=== PATIENT | male | born 1965 | race Caucasian/White ===

== ENCOUNTER 2016-06-25 14:19 | Emergency (ER) ==
[2016-06-25 14:31] VITALS: BP 123/88; TEMP 98.4; BMI 29.5
[2016-06-25] MEDS ORDERED: ZOFRAN 4 MG/2 ML IVP STA (15:41)
[2016-06-25] MEDS ORDERED: SODIUM CHLORIDE 1,000 ML IV STA ×2 (15:41)
[2016-06-25 15:55] LABS: BASOPHILS % (AUTO) 0.3 % (0.0-3.0); EOSINOPHILS # (AUTO) 0.1 K/ul (0.0-0.7); EOSINOPHILS % (AUTO) 1.2 % (0.0-7.0); HEMATOCRIT 42.3 % (42.0-52.0); HEMOGLOBIN 15.4 g/dl (14.0-18.0); IMMATURE GRANULOCYTE % (AUTO) 0.2 % (0.0-5.0); LYMPHOCYTES % (AUTO) 41.4 (10.0-50.0); MEAN CORPUSCULAR HEMOGLOBIN 32.8 pg (27.0-31.0); MEAN CORPUSCULAR HGB CONC 36.4 (31.8-35.4); MONOCYTES # (AUTO) 0.6 K/uL (0.4-2.0); NEUTROPHILS # (AUTO) 6.3 K/ul (2.0-6.9); NEUTROPHILS % (AUTO) 51.9; PLATELET COUNT 194 10^3/uL (140-440); WHITE BLOOD COUNT 12.14 K/ul (4.2-10.2)
[2016-06-25 16:11] LABS: FLU INTERNAL QC INTERNAL QC VALID; RAPID FLU A NEGATIVE (NEGATIVE); RAPID FLU B NEGATIVE (NEGATIVE)
[2016-06-25 16:22] LABS: ALANINE AMINOTRANSFERASE 18 U/L (12-78); ALBUMIN 3.9 g/dL (3.4-5.0); ALKALINE PHOSPHATASE 94 U/L (50-136); AMYLASE 48 U/L (25-115); ANION GAP 13.8; ASPARTATE AMINO TRANSFERASE 17 U/L (15-37); BILIRUBIN,TOTAL 0.65 mg/dL (0.00-1.20); BLOOD UREA NITROGEN 9 mg/dL (7-18); BUN/CREATININE RATIO 9.57; CALCIUM 9.1 mg/dL (8.2-10.2); CARBON DIOXIDE 23 mmol/L (21-32); CHLORIDE 110 mmol/L (98-107); CREATINE KINASE 39 U/L; CREATININE 0.94 mg/dL (0.60-1.10); GLUCOSE 79 mg/dL (70-100); LIPASE 22 U/L (8-78); POTASSIUM 3.8 mmol/L (3.5-5.1); SODIUM 143 mmol/L (136-145); TOTAL PROTEIN 6.9 g/dL (6.4-8.2)
--- NOTE | 2016-06-25 16:32 | CT ---
EXAM: CT of the abdomen and pelvis without IV contrast. HISTORY: Vomiting, diarrhea COMPARISON: 03/05/2015 TECHNIQUE: CT of the abdomen and pelvis without IV contrast. Oral contrast is seen. FINDINGS: Noncontrast technique limits evaluation of the abdominal viscera. No renal, ureteral or bladder brenna culi are identified. The unenhanced liver, gallbladder, spleen, adrenals, kidneys and pancreas are u nremarkable. No abnormal small bowel dilation is seen. There is mild diverticulosis without evidence of divertic ulitis. The appendix appears to be surgically absent. Ventral abdominal wall mesh is seen. There is a small fat containing umbilical hernia. There is calcified atherosclerotic plaque of the aorta and its branches. Small bilateral fat containing inguinal hernias are present. No free air or free fluid is seen. A sacral stimulator device is seen. There is moderate to severe L5-S1 degenerative disc disease. Mild to moderate degenerative disc disease is seen at other levels. There is minima l grade 1 posterior listhesis at L1-L2. There is mildly increased sclerosis of the right aspect of t he L4 vertebral body near the superior endplate. There is a suggestion of a possible small Schmorl' s node in this region. IMPRESSION: No acute intra-abdominal findings. Mild increased focal sclerosis of the right aspect of the L4 vertebral body with a suggestion of a p ossible Schmorl's node in this region. This could be degenerative in etiology, however a metastasis would be difficult to exclude. Mild diverticulosis without evidence of diverticulitis. Small bilateral fat containing inguinal hernias and small fat-containing umbilical hernia. Other chronic and incidental findings as detailed above.
--- NOTE | 2016-06-25 16:38 | CT ---
EXAM: Noncontrast CT of the chest HISTORY: Cough COMPARISON: 02/23/2015, 12/01/2011 TECHNIQUE: Noncontrast CT of the chest FINDINGS: A subcentimeter stable right upper lobe pulmonary nodule is seen on axial image 27. There is a stab le perifissural lymph node adjacent to the right minor fissure. There is a stable subcentimeter pul monary nodule in the left upper lobe on axial image 22. Several calcified granulomas are seen. The re is minimal left lingular atelectasis. No focal consolidation, pleural effusion or pneumothorax i s seen. Heart size is normal. Minimal calcified atherosclerotic plaque of the aorta is seen. No mediastina l lymphadenopathy is seen. Calcified mediastinal and hilar lymph nodes are present. There are mild degenerative changes of the thoracic spine. IMPRESSION: No acute cardiopulmonary findings. Evidence of prior granulomatous infection. Minimal left lingular atelectasis.
--- NOTE | 2016-06-25 17:16 | ED.PDOC ---
General ED Provider: Dr. ABBY CASEY-ER Chief Complaint: Nausea/Vomiting Stated Complaint: im throwing up and having diarrhea Time Seen by Physician: 14:30 Mode of Arrival: Walk-In Information Source: Patient Exam Limitations: No limitations Primary Care Provider: JAMES MARSH Nursing and Triage Documentation Reviewed and Agree: Yes GI Complaint Exam - Vomiting/Diarrhea Complaint/Exam Onset/Duration: 36hrs Symptoms Are: Still present Episodes of Vomiting over last 24 Hours: 5 Episodes of Diarrhea Over Last 24 Hours: 4 Initial Severity: Mild Current Severity: Moderate Character of Vomiting: Reports: Non-bilious Character of Diarrhea: Reports: Watery Aggravating: Reports: None Alleviating: Reports: None Associated Signs and Symptoms: Denies: Dizziness, Light-headedness, Melena, Hematemesis, Fever, Abdominal pain, Cramping Non-GI Risk Factors: Reports: None Surgical Obstruction Risk Factors: Reports: None Abdominal Findings: Present: None [place] Respirations Present: No Differential Diagnoses: Dehydration, Viral Gastroenteritis Review of Systems - Review Of Systems Constitutional: Reports: No symptoms Eyes: Reports: No symptoms Ears, Nose, Mouth, Throat: Reports: No symptoms Respiratory: Reports: No symptoms Cardiac: Reports: No symptoms GI: Reports: Diarrhea, Nausea, Vomiting : Reports: No symptoms Musculoskeletal: Reports: No symptoms Skin: Reports: No symptoms Neurological: Reports: No symptoms Endocrine: Reports: No symptoms Hematologic/Lymphatic: Reports: No symptoms All Other Systems: Reviewed and Negative Past Medical History - Past Medical History Previously Healthy: No Endocrine: Reports: Dyslipidemia Cardiovascular: Reports: None Respiratory: Reports: None Hematological: Reports: None Gastrointestinal: Reports: None Genitourinary: Reports: Other (prostate cancer) Neuro/Psych: Reports: None Musculoskeletal: Reports: None Cancer: Reports: None - Surgical History General Surgical History: Reports: None - Family History Family History: Reports: None - Social History Smoking Status: Current every day smoker, Heavy tobacco smoker Hx Substance Use: No Alcohol Screening: None Lives: With family Physical Exam - Physical Exam Appearance: Well-appearing, No pain distress, Well-nourished Eyes: KURT, EOMI, Conjunctiva clear ENT: Ears normal, Nose normal, Oropharynx normal Neck: Supple Respiratory: Airway patent, Breath sounds clear, Breath sounds equal, Respirations nonlabored Cardiovascular: RRR, Pulses normal, No rub, No murmur GI/: Soft, Nontender, No masses, Bowel sounds normal, No Organomegaly Musculoskeletal: Normal strength, ROM intact, No edema, No calf tenderness Skin: Warm, Dry, Normal color Neurological: Sensation intact, Motor intact, Reflexes intact, Cranial nerves intact, Alert, Oriented Psychiatric: Affect appropriate, Mood appropriate Interpretation - Radiology Interpretation Radiology Interpretation By: Radiologist Radiology Results: Negative Exam Interpreted: CT Scan Re-Evaluation - Re-Evaluation Time of Re-Evaluation: 17:16 Status: Improved Vital Signs Stable: Yes Pain Level: 0 Appearance: NAD Lungs: Clear Skin: Warm and Dry Neuro: Alert and Oriented X3 CV: RRR Critical Care Note - Critical Care Note Total Time (mins): 0 Course - Course Hematology/Chemistry: 06/25/16 15:45 06/25/16 15:45 Orders, Labs, Meds: Lab Review 06/25/16 06/25/16 06/25/16 15:45 15:55 17:25 WBC 12.14 H RBC 4.70 Hgb 15.4 Hct 42.3 MCV 90.0 MCH 32.8 H MCHC 36.4 H RDW Coeff of Emil 12.2 Plt Count 194 Immature Gran % (Auto) 0.2 Neut % (Auto) 51.9 Lymph % (Auto) 41.4 [place] % (Auto) 5.0 Eos % (Auto) 1.2 Baso % (Auto) 0.3 Immature Gran # (Auto) 0.0 Neut # 6.3 Lymph # 5.0 H [place] # 0.6 Eos # 0.1 Baso # 0.0 D-Dimer 0.27 Sodium 143 Potassium 3.8 Chloride 110 H Carbon Dioxide 23 Anion Gap 13.8 BUN 9 Creatinine 0.94 Estimated GFR (MDRD) 84.00 BUN/Creatinine Ratio 9.57 Glucose 79 Calcium 9.1 Total Bilirubin 0.65 AST 17 ALT 18 Alkaline Phosphatase 94 Total Creatine Kinase 39 Troponin I < 0.0100 B-Natriuretic Peptide 10 Total Protein 6.9 Albumin 3.9 Globulin 3.0 Albumin/Globulin Ratio 1.30 Amylase 48 Lipase 22 Urine Color Yellow Urine Clarity Clear Urine pH 5.5 Ur Specific [place] <=1.005 Urine Protein Negative Urine Glucose (UA) Negative Urine Ketones Negative Urine Blood Negative Urine Nitrite Negative Urine Bilirubin Negative Urine Urobilinogen 0.2 Ur Leukocyte Esterase Negative Influenza A (Rapid) Negative Influenza B (Rapid) Negative Orders Category Date Time Status EKG-(ED ONLY) Stat CARDIO 06/25/16 15:40 Completed ED IV/MEDIPORT/POWERPORT .ONCE EMERGENCY 06/25/16 15:41 Active AMYLASE Stat LAB 06/25/16 15:45 Completed BNP [B-TYPE NATRIURETIC PEPTIDE] Stat LAB 06/25/16 15:45 Completed CBC W/ AUTO DIFF Stat LAB 06/25/16 15:45 Completed COMPREHENSIVE METABOLIC PANEL Stat LAB 06/25/16 15:45 Completed CREATINE KINASE Stat LAB 06/25/16 15:45 Completed D-DIMER Stat LAB 06/25/16 15:45 Completed LIPASE Stat LAB 06/25/16 15:45 Completed MOLECULAR GROUP A STREP Stat LAB 06/25/16 15:55 Results RAPID FLU A/B Stat LAB 06/25/16 15:55 Completed STREP SCREEN Stat LAB 06/25/16 15:55 Results TROPONIN I Stat LAB 06/25/16 15:45 Completed URINALYSIS C & S IF INDICATED Stat LAB 06/25/16 17:25 Completed 0.9 % Sodium Chloride [Saline Flush] MEDS 06/25/16 15:41 Ordered 1 syr IVF PRN PRN Ondansetron HCl/Pf [Zofran 4 mg/2 ml] MEDS 06/25/16 15:41 Discontinued 4 mg IVP ONCE STA Sodium Chloride 0.9% [Sodium Chloride] 1,000 ml MEDS 06/25/16 15:41 Discontinued IV BOLUS Sodium Chloride 0.9% [Sodium Chloride] 1,000 ml MEDS 06/25/16 15:[address] ABDOMEN/PELVIS WO CONTRAST Stat RADS 06/25/16 15:[address] CHEST W/O CONTRAST Stat RADS 06/25/16 15:54 Completed Medications Generic Name Dose Route Start Last Admin Trade Name Freq PRN Reason Stop Dose Admin Sodium Chloride 1 syr 06/25/16 15:41 06/25/16 16:25 Saline Flush IVF 1 syr PRN PRN Administration To flush IV Discontinued Medications Generic Name Dose Route Start Last Admin Trade Name Freq PRN Reason Stop Dose Admin Sodium Chloride 1,000 mls @ 1,000 mls/hr 06/25/16 15:41 06/25/16 16:25 Sodium Chloride IV 06/25/16 16:40 1,000 mls/hr BOLUS STA Administration Sodium Chloride 1,000 mls @ 1,000 mls/hr 06/25/16 15:41 06/25/16 17:28 Sodium Chloride IV 06/25/16 16:40 1,000 mls/hr BOLUS STA Administration Ondansetron HCl 4 mg 06/25/16 15:41 06/25/16 16:25 Zofran 4 Mg/2 Ml IVP 06/25/16 15:42 4 mg ONCE STA Administration Vital Signs: Temp Pulse Resp BP Pulse Ox 06/25/16 14:19 98.4 F 85 20 123/88 96 Departure - Departure Time of Disposition: 17:46 Disposition: HOME SELF-CARE Discharge Problem: Gastroenteritis Instructions: Gastroenteritis (ED) Condition: Good Pt referred to PMD for follow-up: Yes Additional Instructions: zofran 4mg q 4hrs prn #4--clear liquids--reheck in 24hrs if not better Allergies/Adverse Reactions: Allergies No Known Allergies Allergy (Uncoded 06/25/16 14:24) Home Medications: Ambulatory Orders Aripiprazole [Abilify] 5 mg PO DAILY 03/25/15 Fenofibrate 160 mg PO DAILY 03/25/15 Gabapentin [Neurontin] 300 mg PO DAILY 03/25/15 Alprazolam [Xanax] 0.5 mg PO BID #20 tablet 06/08/15 Sertraline HCl 50 mg PO DAILY 06/08/15 Buspirone HCl 15 mg PO TID PRN 01/24/16 Clonazepam [Klonopin] 1 mg PO BID 01/24/16 Lamotrigine 100 mg PO BID 01/24/16 Quetiapine Fumarate [Seroquel] 100 mg PO BEDTIME 01/24/16 Disposition Discussed With: Patient
[2016-06-25 17:43] LABS: BILIRUBIN,URINE Negative (NEGATIVE); KETONES,URINE Negative (NEGATIVE); LEUKOCYTE ESTERASE ,URINE Negative (NEGATIVE); NITRITE,URINE Negative (NEGATIVE); PH,URINE 5.5 (5-9); PROTEIN,URINE Negative (NEGATIVE); URINE, BLOOD Negative (NEGATIVE)
[2016-06-25 17:44] LABS: ADD URINE MICROSCOPIC NO
== END 2016-06-25 18:37 | disposition home or self-care (01) ==
LOC: ED 14:19
DX: K52.9 Noninfective gastroenteritis and colitis, unspecified (principal); F17.210 Nicotine dependence, cigarettes, uncomplicated; Z79.899 Other long term (current) drug therapy
CPT/HCPCS: 36415; 80053; 81001; 82150; 82550; 83690; 83880; 84484; 85025; 85379; 87651; 87804; 87880; 93005; 93010; 96361; 96374; 99283

== ENCOUNTER 2016-09-12 09:02 | Outpatient (CLI) ==
[2012-11-05 12:28] VITALS: TEMP 97.5
[2016-09-12 09:16] LABS: BASOPHILS % (AUTO) 0.4 % (0.0-3.0); EOSINOPHILS # (AUTO) 0.1 K/ul (0.0-0.7); EOSINOPHILS % (AUTO) 1.3 % (0.0-7.0); HEMATOCRIT 45.8 % (42.0-52.0); HEMOGLOBIN 16.6 g/dl (14.0-18.0); IMMATURE GRANULOCYTE % (AUTO) 0.2 % (0.0-5.0); LYMPHOCYTES # (AUTO) 3.3 K/uL (0.60-3.4); LYMPHOCYTES % (AUTO) 35.2 (10.0-50.0); MEAN CORPUSCULAR HEMOGLOBIN 33.7 pg (27.0-31.0); MEAN CORPUSCULAR HGB CONC 36.2 (31.8-35.4); MEAN CORPUSCULAR VOLUME 92.9 fl (80.0-94.0); MONOCYTES # (AUTO) 0.5 K/uL (0.4-2.0); NEUTROPHILS # (AUTO) 5.4 K/ul (2.0-6.9); NEUTROPHILS % (AUTO) 57.9; PLATELET COUNT 192 10^3/uL (140-440); RED BLOOD COUNT 4.93 10^6/ul (4.70-6.10); WHITE BLOOD COUNT 9.33 K/ul (4.2-10.2)
[2016-09-12 10:01] LABS: ALBUMIN 3.9 g/dL (3.4-5.0); ALBUMIN/GLOBULIN RATIO 1.22; BILIRUBIN,TOTAL 0.58 mg/dL (0.00-1.20); BUN/CREATININE RATIO 13.79; CALCIUM 9.3 mg/dL (8.2-10.2); CHOL/HDL RATIO 4.7 (4.5-6.4); CREATININE 0.87 mg/dL (0.60-1.10); TOTAL PROTEIN 7.1 g/dL (6.4-8.2)
== END 2016-09-12 09:03 | disposition home or self-care (01) ==
LOC: LAB 09:02
PROVIDERS: ATTEND Nurse Practitioner Family
DX: E78.5 Hyperlipidemia, unspecified (principal); Z12.5 Encounter for screening for malignant neoplasm of prostate
CPT/HCPCS: 36415; 80053; 80061; 84443; 85025

== ENCOUNTER 2017-01-22 16:26 | Outpatient (CLI) ==
[2012-11-05 12:28] VITALS: TEMP 97.5
[2017-01-22 16:30] LABS: BASOPHILS % (AUTO) 0.3 % (0.0-3.0); EOSINOPHILS # (AUTO) 0.1 K/ul (0.0-0.7); HEMATOCRIT 39.8 % (42.0-52.0); IMMATURE GRANULOCYTE % (AUTO) 0.2 % (0.0-5.0); LYMPHOCYTES # (AUTO) 4.2 K/uL (0.60-3.4); LYMPHOCYTES % (AUTO) 45.7 (10.0-50.0); MEAN CORPUSCULAR HEMOGLOBIN 33.1 pg (27.0-31.0); MEAN CORPUSCULAR HGB CONC 35.2 (31.8-35.4); MEAN CORPUSCULAR VOLUME 94.1 fl (80.0-94.0); MONOCYTES # (AUTO) 0.6 K/uL (0.4-2.0); NEUTROPHILS # (AUTO) 4.2 K/ul (2.0-6.9); NEUTROPHILS % (AUTO) 45.8; PLATELET COUNT 208 10^3/uL (140-440); RED BLOOD COUNT 4.23 10^6/ul (4.70-6.10); WHITE BLOOD COUNT 9.17 K/ul (4.2-10.2)
== END 2017-01-22 16:27 | disposition home or self-care (01) ==
LOC: LAB 16:26
PROVIDERS: ATTEND Emergency Medicine
DX: E78.5 Hyperlipidemia, unspecified (principal); R63.4 Abnormal weight loss; R73.09 Other abnormal glucose
CPT/HCPCS: 36415; 84436; 84443; 84480; 85025

== ENCOUNTER 2017-01-26 15:41 | Emergency (ER) ==
[2017-01-26 15:46] VITALS: BP 139/82; TEMP 97.9; BMI 26.3
[2017-01-26 16:31] LABS: BASOPHILS % (AUTO) 0.3 % (0.0-3.0); EOSINOPHILS # (AUTO) 0.2 K/ul (0.0-0.7); EOSINOPHILS % (AUTO) 1.8 % (0.0-7.0); HEMOGLOBIN 14.2 g/dl (14.0-18.0); IMMATURE GRANULOCYTE % (AUTO) 0.2 % (0.0-5.0); LYMPHOCYTES # (AUTO) 4.5 K/uL (0.60-3.4); LYMPHOCYTES % (AUTO) 42.7 (10.0-50.0); MEAN CORPUSCULAR HEMOGLOBIN 33.4 pg (27.0-31.0); MEAN CORPUSCULAR HGB CONC 35.5 (31.8-35.4); MEAN CORPUSCULAR VOLUME 94.1 fl (80.0-94.0); MONOCYTES # (AUTO) 0.8 K/uL (0.4-2.0); MONOCYTES % (AUTO) 7.2 (0-10); NEUTROPHILS % (AUTO) 47.8; PLATELET COUNT 213 10^3/uL (140-440); RED BLOOD COUNT 4.25 10^6/ul (4.70-6.10); WHITE BLOOD COUNT 10.47 K/ul (4.2-10.2)
[2017-01-26 16:49] LABS: PARTIAL THROMBOPLASTIN TIME 21.9 SEC (23.9-40.0); PROTHROMBIN TIME 10.8 SEC (9.3-11.0)
[2017-01-26 16:57] LABS: ALBUMIN/GLOBULIN RATIO 1.54; ANION GAP 17.9; BILIRUBIN,TOTAL 0.37 mg/dL (0.00-1.20); BUN/CREATININE RATIO 10.34; CALCIUM 9.2 mg/dL (8.2-10.2); CREATININE 0.87 mg/dL (0.60-1.10); POTASSIUM 3.9 mmol/L (3.5-5.1); TOTAL PROTEIN 6.6 g/dL (6.4-8.2)
[2017-01-26 17:03] LABS: OCCULT BLOOD INTERNAL QC 1 INTERNAL QC VALID; OCCULT BLOOD INTERNAL QC 2 INTERNAL QC VALID; OCCULT BLOOD INTERNAL QC 3 INTERNAL QC VALID; OCCULT BLOOD SAMPLE 1 NEGATIVE (NEGATIVE); OCCULT BLOOD SAMPLE 2 NO SPECIMEN RECEIVED (NEGATIVE); OCCULT BLOOD SAMPLE 3 NO SPECIMEN RECEIVED (NEGATIVE)
--- NOTE | 2017-01-26 17:31 | CT ---
Exam: CT scan of the abdomen pelvis without contrast. Date: 01/26/2017. Comparison: 06/25/2016. HISTORY: Pain. TECHNIQUE: A helical scan of the abdomen pelvis was performed without contrast. FINDINGS: There is chronic scarring in the lingula with granulomatous calcifications present. Dege nerative changes are seen in the lower thoracic spine and in the lumbar spine. A battery pack is im planted in the soft tissues over the right gluteus muscle and a wire extends through the sacral fora men into the lower right pelvis as before. There is a small fat filled umbilical hernia. The spleen and liver have a uniform attenuation. A ch olecystectomy is noted. The stomach, pancreas and adrenal glands are normal. The kidneys have a no rmal morphology. No calculi or hydronephrosis is seen. No retroperitoneal adenopathy is present. Aorta has peripheral calcification and does not exceed 3 cm. The small bowel is normal and an appen dectomy is noted. There are diverticula in the colon but no inflammatory changes. Pelvic sidewall and bladder are normal. There is no free pelvic fluid. Prostate, rectum and inguinal regions are n ormal. Impression: No acute findings in the abdomen or pelvis. Diverticulosis without diverticulitis. Cholecystectomy and appendectomy. Small fat filled umbilical hernia. ASVD.
--- NOTE | 2017-01-26 17:47 | ED.PDOC ---
General ED Provider: Dr. SOLA KESSLER Chief Complaint: GI Bleed Stated Complaint: retal bleed Time Seen by Physician: 16:00 (seen with steven) Mode of Arrival: Walk-In Information Source: Patient Exam Limitations: No limitations Primary Care Provider: [facility] Nursing and Triage Documentation Reviewed and Agree: Yes GI Complaint Exam - Rectal Complaint/Exam Patient Complains of: Reports: Rectal bleeding Onset/Duration: 2 months off and on Symptoms Are: Resolved Timing: Intermittent Episodes Lasting: Weeks Initial Severity: Mild Current Severity: None Location: Reports: No pain Aggravating: Reports: None Alleviating: Reports: None Associated Signs and Symptoms: Reports: Rectal bleeding, Bright red blood w/ stool Related History: Reports: Similar episode Related Surgical History: Reports: None Rectal Exam: Present: Normal findings Differential Diagnoses: Hemorrhoids Review of Systems - Review Of Systems Constitutional: Reports: No symptoms Eyes: Reports: No symptoms Ears, Nose, Mouth, Throat: Reports: No symptoms Respiratory: Reports: No symptoms Cardiac: Reports: No symptoms GI: Reports: Other (rectal bleeding) : Reports: No symptoms Musculoskeletal: Reports: No symptoms Skin: Reports: No symptoms Neurological: Reports: No symptoms Endocrine: Reports: No symptoms Hematologic/Lymphatic: Reports: No symptoms All Other Systems: Reviewed and Negative Past Medical History - Past Medical History Previously Healthy: No Endocrine: Reports: Dyslipidemia Cardiovascular: Reports: None Respiratory: Reports: None Hematological: Reports: None Gastrointestinal: Reports: None Genitourinary: Reports: Other (prostate cancer) Neuro/Psych: Reports: None Musculoskeletal: Reports: None Cancer: Reports: None - Surgical History General Surgical History: Reports: None - Family History Family History: Reports: None - Social History Smoking Status: Current every day smoker, Heavy tobacco smoker Hx Substance Use: No Alcohol Screening: None Physical Exam - Physical Exam Appearance: Well-appearing, No pain distress, Well-nourished Eyes: KURT, EOMI, Conjunctiva clear ENT: Ears normal, Nose normal, Oropharynx normal Respiratory: Airway patent, Breath sounds clear, Breath sounds equal, Respirations nonlabored Cardiovascular: RRR, Pulses normal, No rub, No murmur GI/: Soft, Nontender, No masses, Bowel sounds normal, No Organomegaly Musculoskeletal: Normal strength, ROM intact, No edema, No calf tenderness Skin: Warm, Dry, Normal color Neurological: Sensation intact, Motor intact, Reflexes intact, Cranial nerves intact, Alert, Oriented Psychiatric: Affect appropriate, Mood appropriate Interpretation - Radiology Interpretation Radiology Interpretation By: Radiologist Radiology Results: No acute changes Critical Care Note - Critical Care Note Total Time (mins): 0 Course - Course Hematology/Chemistry: 01/26/17 16:29 01/26/17 16:29 Orders, Labs, Meds: Lab Review 01/26/17 01/26/17 16:29 16:55 WBC 10.47 H RBC 4.25 L Hgb 14.2 Hct 40.0 L MCV 94.1 H MCH 33.4 H MCHC 35.5 H RDW Coeff of Emil 12.5 Plt Count 213 Immature Gran % (Auto) 0.2 Neut % (Auto) 47.8 Lymph % (Auto) 42.7 [place] % (Auto) 7.2 Eos % (Auto) 1.8 Baso % (Auto) 0.3 Immature Gran # (Auto) 0.0 Neut # 5.0 Lymph # 4.5 H [place] # 0.8 Eos # 0.2 Baso # 0.0 PT 10.8 INR 1.06 APTT 21.9 L Sodium 147 H Potassium 3.9 Chloride 109 H Carbon Dioxide 24 Anion Gap 17.9 BUN 9 Creatinine 0.87 Estimated GFR (MDRD) 92.00 BUN/Creatinine Ratio 10.34 Glucose 89 Calcium 9.2 Total Bilirubin 0.37 AST 15 ALT 14 Alkaline Phosphatase 81 Total Protein 6.6 Albumin 4.0 Globulin 2.6 Albumin/Globulin Ratio 1.54 Amylase 49 Lipase 26 Stl Occult Blood (IFOB) Negative Stool Occult Blood #2 No specimen received Stool Occult Blood #3 No specimen received Orders Category Date Time Status AMYLASE Stat LAB 01/26/17 16:29 Completed CBC W/ AUTO DIFF Stat LAB 01/26/17 16:29 Completed COMPREHENSIVE METABOLIC PANEL Stat LAB 01/26/17 16:29 Completed LIPASE Stat LAB 01/26/17 16:29 Completed OCCULT BLOOD, STOOL Stat LAB 01/26/17 16:55 Completed PARTIAL THROMBOPLASTIN TIME Stat LAB 01/26/17 16:29 Completed PT WITH INR Stat LAB 01/26/17 16:[address] ABDOMEN/PELVIS WO CONTRAST Stat RADS 01/26/17 16:25 Completed Vital Signs: Temp Pulse Resp BP Pulse Ox 01/26/17 15:41 97.9 F 63 18 139/82 98 Departure - Departure Time of Disposition: 17:47 Disposition: HOME SELF-CARE Discharge Problem: Gastrointestinal hemorrhage Instructions: Rectal Bleeding (ED) Condition: Good Pt referred to PMD for follow-up: Yes Additional Instructions: Please call your Family Physician as soon as possible to schedule a follow-up appointment. Allergies/Adverse Reactions: Allergies No Known Allergies Allergy (Verified 01/26/17 15:46) Home Medications: Ambulatory Orders Aripiprazole [Abilify] 5 mg PO DAILY 03/25/15 Fenofibrate 160 mg PO DAILY 03/25/15 Gabapentin [Neurontin] 300 mg PO DAILY 03/25/15 Alprazolam [Xanax] 0.5 mg PO BID #20 tablet 06/08/15 Sertraline HCl 50 mg PO DAILY 06/08/15 Olanzapine 5 mg PO BID 12/04/16 Olanzapine 20 mg PO BEDTIME 12/04/16 Disposition Discussed With: Patient
== END 2017-01-26 17:50 | disposition home or self-care (01) ==
LOC: ED 15:41
DX: K62.5 Hemorrhage of anus and rectum (principal); E78.5 Hyperlipidemia, unspecified; Z85.46 Personal history of malignant neoplasm of prostate; F17.210 Nicotine dependence, cigarettes, uncomplicated; Z79.899 Other long term (current) drug therapy
CPT/HCPCS: 36415; 80053; 82150; 82272; 83690; 85025; 85610; 85730; 99284

== ENCOUNTER 2017-02-11 05:47 | Inpatient (IN) ==
[2017-02-11 06:04] LABS: BASOPHILS % (AUTO) 0.5 % (0.0-3.0); EOSINOPHILS # (AUTO) 0.2 K/ul (0.0-0.7); EOSINOPHILS % (AUTO) 1.7 % (0.0-7.0); HEMATOCRIT 43.2 % (42.0-52.0); HEMOGLOBIN 15.3 g/dl (14.0-18.0); IMMATURE GRANULOCYTE % (AUTO) 0.1 % (0.0-5.0); LYMPHOCYTES # (AUTO) 3.9 K/uL (0.60-3.4); LYMPHOCYTES % (AUTO) 44.4 (10.0-50.0); MEAN CORPUSCULAR HGB CONC 35.4 (31.8-35.4); MONOCYTES # (AUTO) 0.6 K/uL (0.4-2.0); NEUTROPHILS # (AUTO) 4.1 K/ul (2.0-6.9); NEUTROPHILS % (AUTO) 46.3; PLATELET COUNT 197 10^3/uL (140-440)
[2017-02-11 06:24] LABS: ALBUMIN 3.9 g/dL (3.4-5.0); ALBUMIN/GLOBULIN RATIO 1.18; ANION GAP 13.7; BILIRUBIN,TOTAL 0.39 mg/dL (0.00-1.20); BUN/CREATININE RATIO 10.98; CALCIUM 9.9 mg/dL (8.2-10.2); CREATININE 0.91 mg/dL (0.60-1.10); POTASSIUM 3.7 mmol/L (3.5-5.1); TOTAL PROTEIN 7.2 g/dL (6.4-8.2)
[2017-02-11] MEDS ORDERED: MORPHINE 4 MG/ML VIAL IVP STA (06:28)
[2017-02-11] MEDS ORDERED: ZOFRAN 4 MG/2 ML IVP STA (06:28)
[2017-02-11] MEDS ORDERED: SODIUM CHLORIDE 1,000 ML IV STA (06:29)
[2017-02-11] MEDS ORDERED: DILAUDID 1 MG/ML SYRINGE IVP STA (06:31)
--- NOTE | 2017-02-11 06:39 | ED.PDOC ---
General Stated Complaint: Patient is a 51 year old male who has a history of lower gi blood with recent negative work up at [place] 45 days ago. Has had negative Colonosocpies. State he went to be feeling well woke up with severe abdominal pain and started having gypsy blood in stool x 2. Time Seen by Physician: 06:37 Mode of Arrival: Walk-In Information Source: Patient Exam Limitations: No limitations Nursing and Triage Documentation Reviewed and Agree: Yes <BRENT SHAFER - Last Filed: 02/11/17 06:56> <SOLA KESSLER - Last Filed: 02/11/17 07:44> ED Provider: Dr. SOLA KESSLER Chief Complaint: Non-specific Complaint [facility] Exam - Rectal Complaint/Exam Patient Complains of: Reports: Rectal bleeding Onset/Duration: 4 hours Symptoms Are: Still present Timing: Intermittent Initial Severity: Moderate Current Severity: Moderate Location: Reports: Rectal Character: Reports: Burning Aggravating: Reports: Bowel movement Alleviating: Reports: None Associated Signs and Symptoms: Reports: Rectal bleeding, Bright red blood w/ stool Related History: Denies: Hemorrhoids, Crohn's, Pilonidal Abcess, Hx of anal intercourse Related Surgical History: Reports: Appendectomy Rectal Exam: Present: Normal findings. Absent: External hemorrhoids Differential Diagnoses: Hemorrhoids, Pruritis Ani, Rectal Fissure, Other ( Diverticulitis ) <BRENT SHAFER Last Filed: 02/11/17 06:56> Review of Systems - Review Of Systems Constitutional: Reports: Loss of appetite, Other (weight loss ) Respiratory: Reports: No symptoms Cardiac: Reports: No symptoms GI: Reports: Abdominal pain, Blood streaked bowels, Poor appetite, Rectal bleeding. Denies: Constipated, Diarrhea, Difficulty swallowing : Reports: No symptoms Musculoskeletal: Reports: No symptoms Neurological: Reports: Anxiety Endocrine: Reports: No symptoms Hematologic/Lymphatic: Reports: No symptoms All Other Systems: Reviewed and Negative <BRENT SHAFER Last Filed: 02/11/17 06:56> Past Medical History - Past Medical History Previously Healthy: No Endocrine: Reports: Dyslipidemia Cardiovascular: Reports: None Respiratory: Reports: None Hematological: Reports: None Gastrointestinal: Reports: GI Bleed Genitourinary: Reports: Other (prostate cancer) Neuro/Psych: Reports: Anxiety, Depression Musculoskeletal: Reports: None Cancer: Reports: Other (prostate ) - Surgical History General Surgical History: Reports: Appendectomy, Other (TURP) - Family History Family History: Reports: None - Social History Smoking Status: Current every day smoker, Heavy tobacco smoker Hx Substance Use: No Alcohol Screening: None - Immunizations Tetanus Shot up to Date: Yes <BRENT SHAFER - Last Filed: 02/11/17 06:56> Physical Exam - Physical Exam Appearance: Ill-appearing, Thin Eyes: KURT Neck: Supple Respiratory: Airway patent, Breath sounds clear, Breath sounds equal, Respirations nonlabored Cardiovascular: RRR, Pulses normal, No rub, No murmur GI/: Soft, Bowel sounds normal, Tender Musculoskeletal: Normal strength, ROM intact, No edema, No calf tenderness Skin: Warm Neurological: Sensation intact, Motor intact, Reflexes intact, Cranial nerves intact, Alert, Oriented Psychiatric: Anxious <BRENT SHAFER - Last Filed: 02/11/17 06:56> Physician Notification - Case Discussed Endorsed To/Discussed With: Dr Bhatia Time of Discussion: 07:00 <BRENT SHAFER - Last Filed: 02/11/17 06:56> Critical Care Note - Critical Care Note Total Time (mins): 0 <BRENT SHAFER - Last Filed: 02/11/17 06:56> Course - Course Hematology/Chemistry: 02/11/17 06:03 02/11/17 06:03 <BRENT SHAFER - Last Filed: 02/11/17 06:56> - Course Hematology/Chemistry: 02/11/17 06:03 02/11/17 06:03 <SOLA KESSLER - Last Filed: 02/11/17 07:44> - Course Orders, Labs, Meds: Lab Review 02/11/17 02/11/17 02/11/17 06:03 06:03 06:05 WBC 8.80 RBC 4.50 L Hgb 15.3 Hct 43.2 MCV 96.0 H MCH 34.0 H MCHC 35.4 RDW Coeff of Emil 12.6 Plt Count 197 Immature Gran % (Auto) 0.1 Neut % (Auto) 46.3 Lymph % (Auto) 44.4 [place] % (Auto) 7.0 Eos % (Auto) 1.7 Baso % (Auto) 0.5 Immature Gran # (Auto) 0.0 Neut # 4.1 Lymph # 3.9 H [place] # 0.6 Eos # 0.2 Baso # 0.0 Sodium 144 Potassium 3.7 Chloride 109 H Carbon Dioxide 25 Anion Gap 13.7 BUN 10 Creatinine 0.91 Estimated GFR (MDRD) 87.00 BUN/Creatinine Ratio 10.98 Glucose 95 Calcium 9.9 Total Bilirubin 0.39 AST 14 L ALT 16 Alkaline Phosphatase 86 Total Protein 7.2 Albumin 3.9 Globulin 3.3 Albumin/Globulin Ratio 1.18 Amylase 59 Lipase 31 Stl Occult Blood (IFOB) Stool Occult Blood #2 Stool Occult Blood #3 02/11/17 07:00 WBC RBC Hgb Hct MCV MCH MCHC RDW Coeff of Emil Plt Count Immature Gran % (Auto) Neut % (Auto) Lymph % (Auto) [place] % (Auto) Eos % (Auto) Baso % (Auto) Immature Gran # (Auto) Neut # Lymph # [place] # Eos # Baso # Sodium Potassium Chloride Carbon Dioxide Anion Gap BUN Creatinine Estimated GFR (MDRD) BUN/Creatinine Ratio Glucose Calcium Total Bilirubin AST ALT Alkaline Phosphatase Total Protein Albumin Globulin Albumin/Globulin Ratio Amylase Lipase Stl Occult Blood (IFOB) Positive Stool Occult Blood #2 No specimen received Stool Occult Blood #3 No specimen received Orders Category Date Time Status NPO REMINDER: IMAGING ONCE CARE 02/11/17 06:35 Completed ED IV/MEDIPORT/POWERPORT .ONCE EMERGENCY 02/11/17 06:29 Active AMYLASE Stat LAB 02/11/17 06:05 Completed CBC W/ AUTO DIFF Stat LAB 02/11/17 06:03 Completed CMP [COMPREHENSIVE METABOLIC PANEL] Stat LAB 02/11/17 06:03 Completed LIPASE Stat LAB 02/11/17 06:05 Completed OCCULT BLOOD, STOOL Stat LAB 02/11/17 07:00 Completed Hydromorphone HCl [Dilaudid 1 mg/ml Syringe] MEDS 02/11/17 06:31 Discontinued 1 mg IVP ONCE STA Methylprednisolone Sod Succ/Pf [Solu-Medrol 125 mg] MEDS 02/11/17 07:39 Stat 125 mg IVP ONCE STA Ondansetron HCl/Pf [Zofran 4 mg/2 ml] MEDS 02/11/17 06:28 Discontinued 4 mg IVP ONCE STA Sodium Chloride 0.9% [Sodium Chloride] 1,000 ml MEDS 02/11/17 06:[address] ABDOMEN/PELVIS W CONTRAST Stat RADS 02/11/17 06:34 Completed Medications Discontinued Medications Generic Name Dose Route Start Last Admin Trade Name Lamont LIRA Reason Stop Dose Admin Hydromorphone HCl 1 mg 02/11/17 06:31 02/11/17 06:38 Dilaudid 1 Mg/Ml Syringe IVP 02/11/17 06:32 1 mg ONCE STA Administration Sodium Chloride 1,000 mls @ 1,000 mls/hr 02/11/17 06:29 02/11/17 06:38 Sodium Chloride IV 02/11/17 07:28 1,000 mls/hr BOLUS STA Administration Methylprednisolone Sodium Succinate 125 mg 02/11/17 07:39 Solu-Medrol 125 Mg IVP 02/11/17 07:40 ONCE STA Ondansetron HCl 4 mg 02/11/17 06:28 02/11/17 06:38 Zofran 4 Mg/2 Ml IVP 02/11/17 06:29 4 mg ONCE STA Administration Vital Signs: Temp Pulse Resp BP Pulse Ox 02/11/17 05:47 97.3 F L 81 18 136/78 81 L Departure <BRENT SHAFER - Last Filed: 02/11/17 06:56> - Departure Time of Disposition: 07:42 (took over care 7 am saw pt with denia and discussed admission after CT report. pt feels no pain no further bleeding occured while in ED BETWEEN 7 AM AND ADMITT) Pt referred to PMD for follow-up: Yes <SOLA KESSLER - Last Filed: 02/11/17 07:44> - Departure Disposition: ADMITTED INPATIENT Discharge Problem: Colitis Instructions: Colitis (ED) Condition: Good Allergies/Adverse Reactions: Allergies No Known Allergies Allergy (Verified 02/11/17 06:09) Home Medications: Ambulatory Orders Aripiprazole [Abilify] 5 mg PO DAILY 03/25/15 Fenofibrate 160 mg PO DAILY 03/25/15 Gabapentin [Neurontin] 300 mg PO DAILY 03/25/15 Alprazolam [Xanax] 0.5 mg PO BID #20 tablet 06/08/15 Sertraline HCl 50 mg PO DAILY 06/08/15 Olanzapine 5 mg PO BID 12/04/16
[2017-02-11 06:47] LABS: AMYLASE 59 U/L (25-115); LIPASE 31 U/L (8-78)
[2017-02-11 07:10] LABS: OCCULT BLOOD INTERNAL QC 1 INTERNAL QC VALID
[2017-02-11 07:12] LABS: OCCULT BLOOD SAMPLE 1 POSITIVE (NEGATIVE)
[2017-02-11 07:13] LABS: OCCULT BLOOD INTERNAL QC 2 INTERNAL QC VALID; OCCULT BLOOD INTERNAL QC 3 INTERNAL QC VALID; OCCULT BLOOD SAMPLE 2 NO SPECIMEN RECEIVED (NEGATIVE); OCCULT BLOOD SAMPLE 3 NO SPECIMEN RECEIVED (NEGATIVE)
--- NOTE | 2017-02-11 07:23 | CT ---
Exam: CT of the abdomen pelvis with intravenous contrast. Comparison: 01/26/2017. Reason for exam: Abdominal pain with lower GI bleed. FINDINGS: Similar appearing nodular thickening in the left anterior lung base on axial image number six. No pleural effusion is seen in the partially imaged lung bases. The liver, gallbladder, spleen, adrenal glands, and pancreas appear grossly unremarkable. 1.4 cm density adjacent to the spleen is likely a splenule. Thickening of the proximal gastric wall likely secondary to non distension. No hydronephrosis, hydroureter, or nephrolithiasis is seen either kidney. The appendix is not seen. There is no focal small bowel dilatation or transition point. Scattered diverticular disease is seen in the descending and rectosigmoid colon without surrounding i nflammatory change. The bladder appears grossly unremarkable. Implanted sacral lead is seen in appropriate position. There is mild thickening of the rectal wall that may be accentuated by non distension. No suspicious appearing osteoblastic or osteolytic lesion. Impression: 1. Thickening of the rectal wall may be accentuated by non distension of a also represent colitis/pr octitis. 2. Nodular thickening in the left anterior lung base appears similar to the previous exam. Recommen d follow up imaging in 6-8 weeeks to document stability. 3. Proximal gastric wall thickening likely accentuated by non distension. If clinical concern exist s, direct visualization may be performed. 4. Otherwise, no acute imaging findings are seen within the abdomen or pelvis.
[2017-02-11] MEDS ORDERED: SOLU-MEDROL 125 MG IVP STA (07:39)
[2017-02-11 08:34] LABS: PARTIAL THROMBOPLASTIN TIME 22.5 SEC (23.9-40.0); PROTHROMBIN TIME 11.1 SEC (9.3-11.0)
[2017-02-11 08:45] VITALS: BMI 25.8
[2017-02-11] MEDS: SODIUM CHLORIDE 1,000 ML IV SCH ×2 (08:52→22:17)
[2017-02-11] MEDS: PROTONIX PO SCH ×2 (08:58→16:18)
[2017-02-11] MEDS: SOLU-MEDROL 125 MG IVP SCH ×2 (08:58→20:31)
[2017-02-11] MEDS ORDERED: OLANZAPINE 5 MG PO SCH (09:00)
[2017-02-11] MEDS ORDERED: NEURONTIN PO SCH (09:00)
[2017-02-11] MEDS ORDERED: TRIGLIDE PO SCH (09:00)
[2017-02-11] MEDS ORDERED: XANAX PO SCH (09:00)
[2017-02-11] MEDS ORDERED: ZYPREXA PO SCH (09:00)
[2017-02-11] MEDS ORDERED: CARAFATE 1 GM PO SCH (11:00)
[2017-02-11] MEDS: CARAFATE PO SCH ×3 (11:17→20:30)
[2017-02-11 13:59] LABS: CREATINE KINASE 29 U/L
[2017-02-11] MEDS: KLONOPIN PO SCH ×2 (14:53→20:30)
[2017-02-11] MEDS: TRIHEXYPHENIDYL HCL 2 MG PO SCH ×42 (14:53→20:31)
[2017-02-11] MEDS ORDERED: GI COCKTAIL PO STA (15:30)
[2017-02-11] MEDS: PROTONIX IV IVP PRN (15:52)
[2017-02-11] MEDS: DEMEROL 25 MG/ML SYRINGE IVP PRN (15:53)
[2017-02-11] MEDS: ZYPREXA PO SCH (20:30)
[2017-02-11] MEDS ORDERED: NON-FORMULARY MEDICATION (Olanzapine [Zyprexa] 20 MG) PO SCH (21:00)
[2017-02-11 22:19] LABS: TROPONIN I 0.019 ng/ml (0.0000-0.4000)
[2017-02-12 04:38] LABS: BASOPHILS % (AUTO) 0.1 % (0.0-3.0); HEMATOCRIT 36.3 % (42.0-52.0); HEMOGLOBIN 13.4 g/dl (14.0-18.0); IMMATURE GRANULOCYTE % (AUTO) 0.5 % (0.0-5.0); LYMPHOCYTES % (AUTO) 10.6 (10.0-50.0); MEAN CORPUSCULAR HEMOGLOBIN 34.3 pg (27.0-31.0); MEAN CORPUSCULAR HGB CONC 36.9 (31.8-35.4); MEAN CORPUSCULAR VOLUME 92.8 fl (80.0-94.0); MONOCYTES # (AUTO) 0.5 K/uL (0.4-2.0); MONOCYTES % (AUTO) 2.5 (0-10); NEUTROPHILS % (AUTO) 86.3; PLATELET COUNT 178 10^3/uL (140-440); RED BLOOD COUNT 3.91 10^6/ul (4.70-6.10); WHITE BLOOD COUNT 18.56 K/ul (4.2-10.2)
[2017-02-12 05:04] LABS: ALBUMIN 3.2 g/dL (3.4-5.0); ALBUMIN/GLOBULIN RATIO 1.19; ANION GAP 11.2; BILIRUBIN,TOTAL 0.29 mg/dL (0.00-1.20); BUN/CREATININE RATIO 11.39; CALCIUM 9.1 mg/dL (8.2-10.2); CREATININE 0.79 mg/dL (0.60-1.10); POTASSIUM 4.2 mmol/L (3.5-5.1); TOTAL PROTEIN 5.9 g/dL (6.4-8.2)
[2017-02-12] MEDS: CARAFATE PO SCH ×4 (05:31→22:19)
[2017-02-12] MEDS: PROTONIX PO SCH ×2 (05:31→17:22)
[2017-02-12] MEDS ORDERED: GI COCKTAIL PO STA (08:22)
[2017-02-12] MEDS: PROTONIX IV IVP PRN (08:28)
[2017-02-12] MEDS: SOLU-MEDROL 125 MG IVP SCH ×2 (08:31→22:20)
[2017-02-12] MEDS: DEMEROL 25 MG/ML SYRINGE IVP PRN ×3 (08:31→22:21)
[2017-02-12] MEDS: ZYPREXA PO SCH ×3 (08:35→22:19)
[2017-02-12] MEDS: KLONOPIN PO SCH ×3 (08:35→22:20)
[2017-02-12] MEDS: TRIHEXYPHENIDYL HCL 2 MG PO SCH ×63 (08:36→22:21)
[2017-02-12] MEDS: SODIUM CHLORIDE 1,000 ML IV SCH (12:18)
[2017-02-13] MEDS: SODIUM CHLORIDE 1,000 ML IV SCH (02:47)
[2017-02-13 04:58] LABS: BASOPHILS % (AUTO) 0.1 % (0.0-3.0); HEMATOCRIT 35.2 % (42.0-52.0); HEMOGLOBIN 12.8 g/dl (14.0-18.0); IMMATURE GRANULOCYTE % (AUTO) 0.7 % (0.0-5.0); LYMPHOCYTES % (AUTO) 10.9 (10.0-50.0); MEAN CORPUSCULAR HEMOGLOBIN 34.4 pg (27.0-31.0); MEAN CORPUSCULAR HGB CONC 36.4 (31.8-35.4); MEAN CORPUSCULAR VOLUME 94.6 fl (80.0-94.0); MONOCYTES # (AUTO) 0.5 K/uL (0.4-2.0); MONOCYTES % (AUTO) 2.5 (0-10); NEUTROPHILS # (AUTO) 15.7 K/ul (2.0-6.9); NEUTROPHILS % (AUTO) 85.8; PLATELET COUNT 179 10^3/uL (140-440); RED BLOOD COUNT 3.72 10^6/ul (4.70-6.10); WHITE BLOOD COUNT 18.32 K/ul (4.2-10.2)
[2017-02-13 05:22] VITALS: TEMP 97.6
[2017-02-13 05:29] LABS: ALBUMIN 3.1 g/dL (3.4-5.0); ALBUMIN/GLOBULIN RATIO 1.35; ANION GAP 11.1; BILIRUBIN,TOTAL 0.27 mg/dL (0.00-1.20); BUN/CREATININE RATIO 15.27; CALCIUM 8.7 mg/dL (8.2-10.2); CREATININE 0.72 mg/dL (0.60-1.10); POTASSIUM 4.1 mmol/L (3.5-5.1); TOTAL PROTEIN 5.4 g/dL (6.4-8.2)
[2017-02-13] MEDS: CARAFATE PO SCH ×2 (06:00→11:59)
[2017-02-13] MEDS: PROTONIX PO SCH (06:00)
[2017-02-13] MEDS: SOLU-MEDROL 125 MG IVP SCH (09:24)
[2017-02-13] MEDS: DEMEROL 25 MG/ML SYRINGE IVP PRN (09:26)
[2017-02-13] MEDS: ZYPREXA PO SCH ×2 (09:26→12:01)
[2017-02-13] MEDS: KLONOPIN PO SCH ×2 (09:27→15:11)
[2017-02-13] MEDS: TRIHEXYPHENIDYL HCL 2 MG PO SCH ×42 (09:27→15:11)
[2017-02-13 12:08] LABS: HEMATOCRIT 36.7 % (42.0-52.0); HEMOGLOBIN 13.3 g/dl (14.0-18.0)
[2017-02-13 12:34] LABS: CREATINE KINASE 26 U/L
[2017-02-13 14:43] VITALS: BP 108/74
--- NOTE | 2017-02-16 14:50 | DS ---
DATE OF SERVICE: 02/13/17 FINAL DIAGNOSIS: 1. Lower GI bleed 2. Anemia 3. Recent history of severe gastritis 4. History fo TIA 5. Schizophrenia 6. Bipolar disorder 7. Anxiety disorder 8. History of prostate cancer DISCHARGE INSTRUCTIONS: Discharge the patient home. Keep followup with Dr. Melendez for endoscopy and colonoscopy evaluation. Continue the rest of the home medications. MEDICATIONS AT DISCHARGE: Klonopin 0.5mg PO three times a day Olanzapine 5mg PO daily Zyprexa 20mg at bedtime Trihexyphenidyl 2mg three times a day Protonix 40mg PO twice a day Carafate 1gram AC and HS DIET INSTRUCTIONS: Low residue diet Avoid following foods while on a low-residue diet: Deli meats Dry fruits ACTIVITY: Get plenty of rest at home. Gradually increase activity as tolerated. SMOKING: Current everyday smoker. DISEASE SPECIFIC EDUCATION: Lower GI bleed Colon cancer been discussed and need for the colonoscopy suggested. The patient verbalized understand and wants to go for the colonoscopy. HOSPITAL COURSE: Brady Ch who is a 51 year old male who recently was admitted to the [facility] initially and had complicated course of the GI bleed there and was transferred to the [facility] with endoscopy it showed the patient was having severe gastritis reaction and at that time the patient had blood transfusion and sent back to [facility]. The patient was doing fine until this episode where he started having GI bleed, bright red color and abdominal pain. He came to the emergency room. Initial H&H was normal but stool was positive for the occult blood. CT of abdomen and pelvis showed the questionable proctitis and gastritic wall thickening. At that time he was admitted to the hospital and started on the Protonix 40mg PO twice a day and Demerol was given for the pain and Carafate and GI cocktail was given. Gradually the H&H was falling from 15.3 to 13.4, 12.8 then 13.3. Eventually the lower GI bleed as stopped and the patient was up and about walking and did not have any problem and no dizziness. At that he is being discharged home today. TIME SPENT: MORE THAN 55 MINUTES MTDD
--- NOTE | 2017-02-16 14:57 | PN ---
DATE OF SERVICE: 02/12/17 SUBJECTIVE: The patient was admitted with the lower GI bleed. Hgb dropped to the 13.4 and the patient had two more episodes while he was in the hospital. REVIEW OF SYSTEMS: CONSTITUTIONAL: No fever, no chills. HEENT: Normal. ENDOCRINE: No weight gain, no weight loss. CVS: No angina symptoms. No CHF symptoms. No palpitations. No atypical chest pain for CAD. No shortness of breath. No PND, no orthopnea. RESPIRATORY: No cough, no hemoptysis. GI: No nausea, no vomiting. No abdominal pain. : No hematuria. No polyuria. MUSCULOSKELETAL:. No joint swelling. PSYCHIATRIC: Not anxious. No depression. No suicidal thoughts. No homicidal thoughts. SKIN: Intact. No rash. PHYSICAL EXAMINATION: V/S: Blood pressure 136/78, respiratory rate 18, heart rate 63 and temperature 97.3. HEENT: Normocephalic, atraumatic. NECK: Supple. No JVD, no carotid bruit. No lymphadenopathy. LUNGS: Clear to auscultation. No rales or rhonchi. HEART: S1, S2 normal. No S3. No murmur, gallop or regurgitation. ABDOMEN: Soft, Mild epigastric tenderness is present. Bowel sounds sluggish. No rigidity. No rebound or guarding. No CVA tenderness. EXTREMITIES: No clubbing, cyanosis or pedal edema. MUSCULOSKELETAL: No joint swelling. NEUROLOGIC: Awake, alert, oriented times three. No focal deficit. LYMPHATIC: No lymph nodes palpable. SKIN: Intact. LABS: WBC 18.56, hgb 13.4, hct 36.3, plt count 178, sodium 140, potassium 4.2, chloride 112, bicarb 21, BUN 9, creatinine 0.79, glucose 155. ASSESSMENT: 1. Lower GI bleed mostly from the diverticulosis 2. Recent history of severe gastritis 3. Schizophrenia 4. Bipolar 5. TIA PLAN: 1. Continue to monitor the H&H 2. Protonix 40mg PO twice a day 3. Carafate AC and HS 4. GI cocktail 5. Demerol 25mg Q 6 hours PRN Will follow the patient in daily rounds. TIME SPENT: More than 35 minutes MTDD
--- NOTE | 2017-02-16 15:20 | HP ---
DATE OF SERVICE: 02/11/17 CHIEF COMPLAINT: Rectal bleed, Hematochezia HISTORY OF PRESENT ILLNESS: This is a 51 year old male who was recently admitted to the [facility] and then transferred to the [facility] were he had endoscopy and found to have severe gastritis and has hepatitis C and some bipolar problems. He came to the emergency room having bloody bowel movements and abdominal pain. The patient was seen by Dr. Cervantes in the emergency room. CT of abdomen and pelvis was done which showed thickening of the rectal wall maybe accentuated by non- distention also, proctitis can be a possibility. Nodules in the left lung base, gastric wall thickening. At that time in review of the rectal bleed and vitals been stable the patient was admitted to the [place]. The patient was started on the IV Protonix REVIEW OF SYSTEMS: CONSTITUTIONAL: No fever, no chills. Weakness and tiredness. HEENT: Normal. ENDOCRINE: No weight gain; no weight loss. CVS: No chest pain. No PND, no orthopnea. No shortness of breath. No PND, no orthopnea. RESPIRATORY: No cough, no congestion. No hemoptysis. GI: No nausea, no vomiting. Abdominal pain and cramping. No melena. Lower GI bleed. : No hematuria. No polyuria. MUSCULOSKELETAL: No joint swelling. PSYCHIATRIC: Not anxious. No depression. No suicidal thoughts. No homicidal thoughts. SKIN: Intact, no open lesions. PAST MEDICAL HISTORY: History of TIA GERD History of prostate cancer Rheumatoid arthritis Schizophrenia Bipolar Depression Anxiety Nicotine use PAST SURGICAL HISTORY: Permanent pacemaker Bladder and prostate surgery Biopsy PERSONAL HISTORY: Family history is significant for the lung cancer. Nicotine use, no alcohol and no drugs. MEDICATIONS: Olanzapine Carafate Protonix Klonopin Trihexyphenidyl Zyprexa ALLERGIES: No known allergies. PHYSICAL EXAMINATION: V/S: Blood pressure 136/78, respiratory rate 18, heart rate 81, temperature 97.3 with saturation 81% on the room air. GENERAL: The patient is laying in the bed with epigastric discomfort. HEENT: Atraumatic, normocephalic. No scleral icterus. Mucosa dry. NECK: Supple. No JVD, no bruit. No lymphadenopathy. No thyromegaly. HEART: S1, S2 normal. No murmur. No cyanosis or clubbing. No ascites. LUNGS: Clear to auscultation. No rales or rhonchi. ABDOMEN: Soft, Mild discomfort. Bowel sounds are sluggish. No CVA tenderness. Rigidity, no guarding. EXTREMITIES: No cyanosis, clubbing or pedal edema. MUSCULOSKELETAL: Normal joints, no swelling. NEUROLOGIC: The patient is SKIN: Intact; no open lesions. LYMPHATIC: No lymph nodes palpable. LABS: WBC 8.80, hgb 15.3, hct 43.2, plt count 197, PT INR 11.1 and 1.09, sodium 144, potassium 3.7, chloride 109, bicarb 25, BUN 10, creatinine 0.91. Stool for occult blood test is positive. ASSESSMENT: 1. Lower GI bleed, rectal bleed 2. Abdominal pain from gastritis 3. History of bipolar 4. Schizophrenia 5. History of TIA PLAN: 1. Admit patient to the regular floor 2. CBC and CMP today and daily 3. Soft diet 4. H&H 5. IV fluids 6. Protonix 40mg twice a day 7. Continue home medications 8. Solu-Medrol one dose 60mg Q 12 hours Will follow the patient in daily rounds. TIME SPENT: MORE THAN 70 minutes MTDD
== END 2017-02-13 15:41 | disposition home or self-care (01) | DRG 379 ==
LOC: ED 05:47 → MEDSURG B 07:47
PROVIDERS: ADMIT Emergency Medicine; ATTEND Emergency Medicine
DX: K92.2 Gastrointestinal hemorrhage, unspecified (principal); D50.0 Iron deficiency anemia secondary to blood loss (chronic); K52.9 Noninfective gastroenteritis and colitis, unspecified; K92.1 Melena; R63.4 Abnormal weight loss; R91.8 Other nonspecific abnormal finding of lung field; F20.9 Schizophrenia, unspecified; F31.9 Bipolar disorder, unspecified; F41.9 Anxiety disorder, unspecified; F17.200 Nicotine dependence, unspecified, uncomplicated; Z86.73 Personal history of transient ischemic attack (TIA), and cerebral infarction without residual deficits; Z85.46 Personal history of malignant neoplasm of prostate; Z87.19 Personal history of other diseases of the digestive system; Z79.899 Other long term (current) drug therapy
CPT/HCPCS: 36415; 80053; 82150; 82272; 82550; 83690; 84484; 85014; 85018; 85025; 85610; 85730; 93005; 93010; 96361; 96374; 96375; 99284

== ENCOUNTER 2017-02-14 10:23 | Emergency (ER) ==
[2017-02-14 10:29] VITALS: BP 119/84; TEMP 98.4; BMI 27.3
--- NOTE | 2017-02-14 10:39 | ED.PDOC ---
General ED Provider: Dr. GOMEZ COTTO Chief Complaint: GI Bleed Stated Complaint: Hospitalized here 3 days ago for rectal bleeding x 1.5 months. D/C'd and told to see doctor if bleeding recurred. Bleeding recurred last night. Time Seen by Physician: 10:40 Mode of Arrival: Walk-In Information Source: Patient Exam Limitations: No limitations [facility] Nursing and Triage Documentation Reviewed and Agree: Yes GI Complaint Exam - GI Bleed Complaint/Exam Patient Complains of: Reports: Rectal bleeding Onset/Duration: last evening Symptoms Are: Resolved Episodes Lasting: Hours Frequency: TNTC Severity: Reports: Blood-streaked stool, Bright red blood-rectum Location of Pain: Reports: Diffuse Character: Reports: Cramping Aggravating: Reports: None Alleviating: Reports: None Associated Signs and Symptoms: Reports: Nausea (vomited blood last night) Related History: Reports: Similar episode (last weekend and in the past. Never scoped. Source of bleeding undetermined.) Recent Colonoscopy: No Recent EGD: No Related Surgical History: Reports: Appendectomy Abdominal Findings: Present: None (generalized moderate tenderness. No rebound or guarding.) Differential Diagnoses: Cancer, Gastritis, PUD Review of Systems - Review Of Systems Constitutional: Reports: No symptoms Eyes: Reports: No symptoms Ears, Nose, Mouth, Throat: Reports: No symptoms Respiratory: Reports: No symptoms Cardiac: Reports: No symptoms GI: Reports: Abdominal pain, Nausea, Rectal bleeding, Vomiting (vomiting blood) : Reports: No symptoms Musculoskeletal: Reports: No symptoms Skin: Reports: No symptoms Neurological: Reports: No symptoms All Other Systems: Reviewed and Negative Past Medical History - Past Medical History Previously Healthy: No Endocrine: Reports: Dyslipidemia Cardiovascular: Reports: None Respiratory: Reports: None Hematological: Reports: None Gastrointestinal: Reports: GI Bleed Genitourinary: Reports: Other (prostate cancer) Neuro/Psych: Reports: Anxiety, Depression Musculoskeletal: Reports: None Cancer: Reports: Other (prostate ) Other Pertinent Past Medical History: schizophrenia - Surgical History General Surgical History: Reports: Appendectomy, Other (TURP) - Family History Family History: Reports: None - Social History Smoking Status: Current every day smoker, Heavy tobacco smoker Hx Substance Use: No Alcohol Screening: None Lives: Alone - Immunizations Tetanus Shot up to Date: Yes Influenza Vaccine within 12 Months: Yes Pneumococcal Vaccine up to Date: No Physical Exam - Physical Exam Appearance: Well-appearing, Well-nourished Ill-appearing: None Pain Distress: Mild Eyes: KURT, EOMI, Conjunctiva clear ENT: Ears normal, Nose normal, Oropharynx normal Neck: Supple Respiratory: Airway patent, Breath sounds clear, Breath sounds equal, Respirations nonlabored Cardiovascular: RRR, Pulses normal, No rub, No murmur GI/: Soft (Rectal exam: no notable abnormalities. No gross blood or gross blood in stool.), Nontender, No masses, Bowel sounds normal, No Organomegaly, Tender (moderate generalized tenderness, no guarding or rebound) Musculoskeletal: Normal strength, ROM intact, No edema, No calf tenderness Skin: Warm, Dry, Normal color Neurological: Sensation intact, Motor intact, Reflexes intact, Cranial nerves intact, Alert, Oriented Psychiatric: Affect appropriate, Mood appropriate Physician Notification - Case Discussed Physician Notified: Dr. Cho Time of Notification: 13:40 (Has appointment with [place] GI doctor tomorrow. Dr. Cho suspects underlying Dx is related to psychiatric dxs) Critical Care Note - Critical Care Note Total Time (mins): 0 Course - Course Hematology/Chemistry: 02/14/17 11:00 02/14/17 11:00 Orders, Labs, Meds: Lab Review 02/14/17 02/14/17 02/14/17 11:00 11:00 11:25 WBC 13.72 H RBC 4.08 L Hgb 13.7 L Hct 38.2 L MCV 93.6 MCH 33.6 H MCHC 35.9 H RDW Coeff of Emil 12.6 Plt Count 182 Immature Gran % (Auto) 1.0 Neut % (Auto) 52.2 Lymph % (Auto) 37.7 [place] % (Auto) 8.8 Eos % (Auto) 0.1 Baso % (Auto) 0.2 Immature Gran # (Auto) 0.1 Neut # 7.2 H Lymph # 5.2 H [place] # 1.2 Eos # 0.0 Baso # 0.0 Sodium 144 Potassium 3.2 L Chloride 109 H Carbon Dioxide 25 Anion Gap 13.2 BUN 12 Creatinine 0.83 Estimated GFR (MDRD) 97.00 BUN/Creatinine Ratio 14.45 Glucose 86 Calcium 8.7 Total Bilirubin 0.29 AST 11 L ALT 19 Alkaline Phosphatase 71 Total Protein 5.8 L Albumin 3.2 L Globulin 2.6 Albumin/Globulin Ratio 1.23 Amylase 40 Lipase 5 L Urine Color Yellow Urine Clarity Clear Urine pH 7.0 Ur Specific [place] 1.010 Urine Protein Negative Urine Glucose (UA) Negative Urine Ketones Negative Urine Blood Negative Urine Nitrite Negative Urine Bilirubin Negative Urine Urobilinogen 0.2 Ur Leukocyte Esterase Negative Stl Occult Blood (IFOB) Stool Occult Blood #2 Stool Occult Blood #3 02/14/17 12:48 WBC RBC Hgb Hct MCV MCH MCHC RDW Coeff of Emil Plt Count Immature Gran % (Auto) Neut % (Auto) Lymph % (Auto) [place] % (Auto) Eos % (Auto) Baso % (Auto) Immature Gran # (Auto) Neut # Lymph # [place] # Eos # Baso # Sodium Potassium Chloride Carbon Dioxide Anion Gap BUN Creatinine Estimated GFR (MDRD) BUN/Creatinine Ratio Glucose Calcium Total Bilirubin AST ALT Alkaline Phosphatase Total Protein Albumin Globulin Albumin/Globulin Ratio Amylase Lipase Urine Color Urine Clarity Urine pH Ur Specific Crystal Urine Protein Urine Glucose (UA) Urine Ketones Urine Blood Urine Nitrite Urine Bilirubin Urine Urobilinogen Ur Leukocyte Esterase Stl Occult Blood (IFOB) Negative Stool Occult Blood #2 Pending Stool Occult Blood #3 Pending Orders Category Date Time Status AMYLASE Stat LAB 02/14/17 11:00 Completed CBC W/ AUTO DIFF Stat LAB 02/14/17 11:00 Completed COMPREHENSIVE METABOLIC PANEL Stat LAB 02/14/17 11:00 Completed LIPASE Stat LAB 02/14/17 11:00 Completed OCCULT BLOOD, STOOL Stat LAB 02/14/17 12:48 Results URINALYSIS C & S IF INDICATED Stat LAB 02/14/17 11:25 Completed Vital Signs: Temp Pulse Resp BP Pulse Ox 02/14/17 10:23 98.4 F 81 20 119/84 95 Departure - Departure Time of Disposition: 13:43 Disposition: HOME SELF-CARE Discharge Problem: Lower GI bleed Instructions: Rectal Bleeding (ED) Condition: Good Pt referred to PMD for follow-up: No (Follow up with [place] GI doctor tomorrow as scheduled) Additional Instructions: Follow up with at [place] tomorrow Allergies/Adverse Reactions: Allergies No Known Allergies Allergy (Verified 02/14/17 10:30) Home Medications: Ambulatory Orders Olanzapine 5 mg PO 0800,1200 12/04/16 Clonazepam [Klonopin] 0.5 mg PO TID 02/11/17 Olanzapine [Zyprexa] 20 mg PO BEDTIME 02/11/17 Trihexyphenidyl HCl 2 mg PO TID 02/11/17 Disposition Discussed With: Patient
[2017-02-14 11:18] LABS: BASOPHILS % (AUTO) 0.2 % (0.0-3.0); EOSINOPHILS % (AUTO) 0.1 % (0.0-7.0); HEMATOCRIT 38.2 % (42.0-52.0); HEMOGLOBIN 13.7 g/dl (14.0-18.0); LYMPHOCYTES # (AUTO) 5.2 K/uL (0.60-3.4); LYMPHOCYTES % (AUTO) 37.7 (10.0-50.0); MEAN CORPUSCULAR HEMOGLOBIN 33.6 pg (27.0-31.0); MEAN CORPUSCULAR HGB CONC 35.9 (31.8-35.4); MEAN CORPUSCULAR VOLUME 93.6 fl (80.0-94.0); MONOCYTES # (AUTO) 1.2 K/uL (0.4-2.0); MONOCYTES % (AUTO) 8.8 (0-10); NEUTROPHILS # (AUTO) 7.2 K/ul (2.0-6.9); NEUTROPHILS % (AUTO) 52.2; PLATELET COUNT 182 10^3/uL (140-440); RED BLOOD COUNT 4.08 10^6/ul (4.70-6.10); WHITE BLOOD COUNT 13.72 K/ul (4.2-10.2)
[2017-02-14 11:21] LABS: ALBUMIN 3.2 g/dL (3.4-5.0); ALBUMIN/GLOBULIN RATIO 1.23; ANION GAP 13.2; BILIRUBIN,TOTAL 0.29 mg/dL (0.00-1.20); BUN/CREATININE RATIO 14.45; CALCIUM 8.7 mg/dL (8.2-10.2); CREATININE 0.83 mg/dL (0.60-1.10); POTASSIUM 3.2 mmol/L (3.5-5.1); TOTAL PROTEIN 5.8 g/dL (6.4-8.2)
[2017-02-14] MEDS ORDERED: ASPIRIN CHEWABLE PO STA (11:21)
[2017-02-14 11:36] LABS: BILIRUBIN,URINE Negative (NEGATIVE); KETONES,URINE Negative (NEGATIVE); LEUKOCYTE ESTERASE ,URINE Negative (NEGATIVE); NITRITE,URINE Negative (NEGATIVE); PROTEIN,URINE Negative (NEGATIVE); URINE, BLOOD Negative (NEGATIVE)
[2017-02-14 11:38] LABS: ADD URINE MICROSCOPIC NO
[2017-02-14 13:02] LABS: OCCULT BLOOD INTERNAL QC 1 INTERNAL QC VALID; OCCULT BLOOD SAMPLE 1 NEGATIVE (NEGATIVE)
[2017-02-14 13:52] LABS: OCCULT BLOOD INTERNAL QC 2 INTERNAL QC VALID; OCCULT BLOOD INTERNAL QC 3 INTERNAL QC VALID; OCCULT BLOOD SAMPLE 2 NO SPECIMEN RECEIVED (NEGATIVE); OCCULT BLOOD SAMPLE 3 NO SPECIMEN RECEIVED (NEGATIVE)
== END 2017-02-14 14:18 | disposition home or self-care (01) ==
LOC: ED 10:23
DX: K62.5 Hemorrhage of anus and rectum (principal); R11.2 Nausea with vomiting, unspecified; F17.210 Nicotine dependence, cigarettes, uncomplicated; Z85.46 Personal history of malignant neoplasm of prostate; Z79.899 Other long term (current) drug therapy
CPT/HCPCS: 36415; 80053; 81001; 82150; 82272; 83690; 85025; 99283

== ENCOUNTER 2017-02-28 10:15 | Emergency (ER) ==
[2017-02-28 10:21] VITALS: BP 105/72; TEMP 98.8; BMI 25.8
[2017-02-28 10:51] LABS: BASOPHILS % (AUTO) 0.5 % (0.0-3.0); EOSINOPHILS # (AUTO) 0.1 K/ul (0.0-0.7); EOSINOPHILS % (AUTO) 0.7 % (0.0-7.0); HEMATOCRIT 39.8 % (42.0-52.0); HEMOGLOBIN 14.2 g/dl (14.0-18.0); IMMATURE GRANULOCYTE % (AUTO) 0.3 % (0.0-5.0); LYMPHOCYTES # (AUTO) 3.1 K/uL (0.60-3.4); LYMPHOCYTES % (AUTO) 35.5 (10.0-50.0); MEAN CORPUSCULAR HEMOGLOBIN 33.8 pg (27.0-31.0); MEAN CORPUSCULAR HGB CONC 35.7 (31.8-35.4); MEAN CORPUSCULAR VOLUME 94.8 fl (80.0-94.0); MONOCYTES # (AUTO) 0.5 K/uL (0.4-2.0); MONOCYTES % (AUTO) 5.6 (0-10); NEUTROPHILS % (AUTO) 57.4; PLATELET COUNT 217 10^3/uL (140-440); WHITE BLOOD COUNT 8.74 K/ul (4.2-10.2)
--- NOTE | 2017-02-28 11:03 | CT ---
EXAM: CT ABDOMEN AND PELVIS HISTORY: Lower GI bleed TECHNIQUE: CT abdomen and pelvis without intravenous contrast. Images were reconstructed using 5 mm section thickness. Reformations were prepared. COMPARISON: 02/11/2017 FINDINGS: Diagnostic limitations exist without including contrast enhanced images. No focal hepatic or spleni c lesions identified. Gallbladder, pancreas and adrenal glands appear normal. Kidneys and ureters a re normal. There is mild atherosclerotic disease. There is early fusiform architecture of the infrar enal aorta without aneurysmal caliber. Stomach appears normal. No appendix is identified. General bowel gas pattern is normal. A few rare s igmoid diverticula are present. Mild circumferential rectal wall thickening is suggested. There is no perirectal stranding, fluid or lymphadenopathy. No prostate enlargement. Urinary bladder appears normal. Small, stable fatty bilateral inguinal hernias likely of no current clinical significance. Tiny fatt y umbilical hernia. Bones reveal moderate degenerative disc disease and facet arthropathy of the lum bosacral junction. Lung bases are free of acute infiltrate. There is mild scarring anteriorly withi n the left lung base. No pneumoperitoneum. IMPRESSION: 1. Possible mild circumferential rectal wall thickening which could indicate mild proctitis. Unlikel y neoplasia. There is no regional fluid, fatty infiltration or adenopathy. 2. A few rare sigmoid diverticula with no inflammation. 3. Atherosclerotic disease. 4. Adrenal glands and stomach appear normal.
[2017-02-28 11:14] LABS: ALANINE AMINOTRANSFERASE 22 U/L (12-78); ALBUMIN 3.8 g/dL (3.4-5.0); ALBUMIN/GLOBULIN RATIO 1.27; ALKALINE PHOSPHATASE 84 U/L (50-136); ANION GAP 13.9; ASPARTATE AMINO TRANSFERASE 14 U/L (15-37); BILIRUBIN,TOTAL 0.55 mg/dL (0.00-1.20); BLOOD UREA NITROGEN 9 mg/dL (7-18); BUN/CREATININE RATIO 10.46; CALCIUM 9.7 mg/dL (8.2-10.2); CARBON DIOXIDE 22 mmol/L (21-32); CHLORIDE 111 mmol/L (98-107); CREATINE KINASE 66 U/L; CREATININE 0.86 mg/dL (0.60-1.10); GLUCOSE 70 mg/dL (70-100); POTASSIUM 3.9 mmol/L (3.5-5.1); SODIUM 143 mmol/L (136-145); TOTAL PROTEIN 6.8 g/dL (6.4-8.2)
[2017-02-28 11:15] LABS: PARTIAL THROMBOPLASTIN TIME 21.6 SEC (23.9-40.0); PROTHROMBIN TIME 11.1 SEC (9.3-11.0)
--- NOTE | 2017-02-28 12:12 | ED.PDOC ---
General ED Provider: Dr. SOLA KESSLER Chief Complaint: GI Bleed Stated Complaint: rectal bleed Time Seen by Physician: 10:30 (seen with ana holt ) Mode of Arrival: Walk-In Information Source: Patient Exam Limitations: No limitations (multiple presentation for rectal bleeding in the past ) Primary Care Provider: FRANTZ CURRANLisa Referred to ED by: Other (returns again for same issue ) Nursing and Triage Documentation Reviewed and Agree: Yes GI Complaint Exam - Rectal Complaint/Exam Patient Complains of: Reports: Rectal bleeding Onset/Duration: this morning Symptoms Are: Still present Timing: Constant Episodes Lasting: Seconds Initial Severity: Mild Current Severity: Mild Location: Reports: Rectal Aggravating: Reports: Bowel movement Alleviating: Reports: None Associated Signs and Symptoms: Reports: Rectal bleeding. Denies: Blood- streaked stool, Black tarry stool, Bright red blood w/ stool, Blood without stool Related History: Reports: Similar episode Related Surgical History: Reports: None Rectal Exam: Present: Normal findings (may was present) Review of Systems - Review Of Systems Constitutional: Reports: No symptoms Eyes: Reports: No symptoms Ears, Nose, Mouth, Throat: Reports: No symptoms Respiratory: Reports: No symptoms Cardiac: Reports: No symptoms GI: Reports: Rectal bleeding : Reports: No symptoms Musculoskeletal: Reports: No symptoms Skin: Reports: No symptoms Neurological: Reports: No symptoms Endocrine: Reports: No symptoms Hematologic/Lymphatic: Reports: No symptoms All Other Systems: Reviewed and Negative Past Medical History - Past Medical History Previously Healthy: No Endocrine: Reports: Dyslipidemia Cardiovascular: Reports: None Respiratory: Reports: None Hematological: Reports: None Gastrointestinal: Reports: GI Bleed Genitourinary: Reports: Other (prostate cancer) Neuro/Psych: Reports: Anxiety, Depression Musculoskeletal: Reports: None Cancer: Reports: Other (prostate ) Other Pertinent Past Medical History: schizophrenia - Surgical History General Surgical History: Reports: Appendectomy, Other (TURP) - Family History Family History: Reports: None - Social History Smoking Status: Current every day smoker, Heavy tobacco smoker Hx Substance Use: No Alcohol Screening: None - Immunizations Influenza Vaccine within 12 Months: Yes Pneumococcal Vaccine up to Date: No Physical Exam - Physical Exam Appearance: Well-appearing, No pain distress, Well-nourished Eyes: KURT, EOMI, Conjunctiva clear ENT: Ears normal, Nose normal, Oropharynx normal Respiratory: Airway patent, Breath sounds clear, Breath sounds equal, Respirations nonlabored Cardiovascular: RRR, Pulses normal, No rub, No murmur GI/: Soft, Nontender, No masses, Bowel sounds normal, No Organomegaly Musculoskeletal: Normal strength, ROM intact, No edema, No calf tenderness Skin: Warm, Dry, Normal color Neurological: Sensation intact, Motor intact, Reflexes intact, Cranial nerves intact, Alert, Oriented Psychiatric: Affect appropriate, Mood appropriate Interpretation - Radiology Interpretation Radiology Interpretation By: Radiologist Radiology Results: No acute changes Critical Care Note - Critical Care Note Total Time (mins): 0 Course - Course Hematology/Chemistry: 02/28/17 10:40 02/28/17 10:40 Orders, Labs, Meds: Lab Review 02/28/17 02/28/17 02/28/17 10:40 10:40 10:40 WBC 8.74 RBC 4.20 L Hgb 14.2 Hct 39.8 L MCV 94.8 H MCH 33.8 H MCHC 35.7 H RDW Coeff of Emil 12.6 Plt Count 217 Immature Gran % (Auto) 0.3 Neut % (Auto) 57.4 Lymph % (Auto) 35.5 [place] % (Auto) 5.6 Eos % (Auto) 0.7 Baso % (Auto) 0.5 Immature Gran # (Auto) 0.0 Neut # 5.0 Lymph # 3.1 [place] # 0.5 Eos # 0.1 Baso # 0.0 PT 11.1 H INR 1.09 APTT 21.6 L Sodium 143 Potassium 3.9 Chloride 111 H Carbon Dioxide 22 Anion Gap 13.9 BUN 9 Creatinine 0.86 Estimated GFR (MDRD) 93.00 BUN/Creatinine Ratio 10.46 Glucose 70 Calcium 9.7 Total Bilirubin 0.55 AST 14 L ALT 22 Alkaline Phosphatase 84 Total Creatine Kinase 66 Troponin I < 0.0100 Total Protein 6.8 Albumin 3.8 Globulin 3.0 Albumin/Globulin Ratio 1.27 Orders Category Date Time Status EKG-(ED ONLY) Stat CARDIO 02/28/17 10:21 Completed ED IV/MEDIPORT/POWERPORT .ONCE EMERGENCY 02/28/17 10:21 Active CBC W/ AUTO DIFF Stat LAB 02/28/17 10:40 Completed COMPREHENSIVE METABOLIC PANEL Stat LAB 02/28/17 10:40 Completed CREATINE KINASE Stat LAB 02/28/17 10:40 Completed PARTIAL THROMBOPLASTIN TIME Stat LAB 02/28/17 10:40 Completed PT WITH INR Stat LAB 02/28/17 10:40 Completed TROPONIN I Stat LAB 02/28/17 10:40 Completed 0.9 % Sodium Chloride [Saline Flush] MEDS 02/28/17 10:20 Active 1 syr IVF PRN PRN CT ABDOMEN/PELVIS WO CONTRAST Stat RADS 02/28/17 10:21 Completed Medications Generic Name Dose Route Start Last Admin Trade Name Freq PRN Reason Stop Dose Admin Sodium Chloride 1 syr 02/28/17 10:20 Saline Flush IVF PRN PRN To flush IV Vital Signs: Temp Pulse Resp BP Pulse Ox 02/28/17 10:15 98.8 F 92 H 18 105/72 96 Departure - Departure Time of Disposition: 12:13 ( labs closely reviwed rectal exam no evidence of blood) Disposition: HOME SELF-CARE Discharge Problem: Gastrointestinal hemorrhage Instructions: Rectal Bleeding (ED) Condition: Good Pt referred to PMD for follow-up: Yes Additional Instructions: Please call your Family Physician as soon as possible to schedule a follow-up appointment. Allergies/Adverse Reactions: Allergies No Known Allergies Allergy (Verified 02/28/17 10:21) Home Medications: Ambulatory Orders Olanzapine 5 mg PO 0800,1200 12/04/16 Olanzapine [Zyprexa] 20 mg PO BEDTIME 02/11/17
[2017-02-28 12:26] LABS: OCCULT BLOOD INTERNAL QC 1 INTERNAL QC VALID; OCCULT BLOOD SAMPLE 1 NEGATIVE (NEGATIVE)
[2017-02-28 12:27] LABS: OCCULT BLOOD INTERNAL QC 2 INTERNAL QC VALID; OCCULT BLOOD INTERNAL QC 3 INTERNAL QC VALID; OCCULT BLOOD SAMPLE 2 NO SPECIMEN RECEIVED (NEGATIVE); OCCULT BLOOD SAMPLE 3 NO SPECIMEN RECEIVED (NEGATIVE)
== END 2017-02-28 12:37 | disposition home or self-care (01) ==
LOC: ED 10:15
DX: K62.5 Hemorrhage of anus and rectum (principal); Z85.46 Personal history of malignant neoplasm of prostate; F17.210 Nicotine dependence, cigarettes, uncomplicated
CPT/HCPCS: 36415; 80053; 82272; 82550; 84484; 85025; 85610; 85730; 93005; 93010; 99283

== ENCOUNTER 2017-07-09 18:17 | Emergency (ER) ==
[2017-07-09 18:22] VITALS: BP 142/84; TEMP 98.4; BMI 26.6
--- NOTE | 2017-07-09 18:45 | ED.PDOC ---
General Stated Complaint: chest pain short of air Time Seen by Physician: 18:18 Mode of Arrival: Walk-In Information Source: Patient Exam Limitations: No limitations Nursing and Triage Documentation Reviewed and Agree: Yes Reviewed sepsis parameters & appropriate labs ordered?: Yes (hector present at all times ) <SOLA KESSLER - Last Filed: 07/09/17 18:43> Stated Complaint: Thinks he may have the flu. States his chest pain is 7/10 System Inflammatory Response Syndrome: Not Applicable System Inflammatory Response Syndrome: Not Applicable <BRENT SHAFER - Last Filed: 07/10/17 03:57> ED Provider: Dr. BRENT SHAFER Chief Complaint: Shortness of Air Primary Care [facility] Sepsis Protocol: For patient's 13 years and over: Temp is 96.8 and below OR 101 and greater Pulse >90 BPM Resp >20/minute Acutely Altered Mental Status Are patient's symptoms suggestive of a new infection, such as: -Pneumonia -Skin, Soft Tissue -Endocarditis -UTI -Bone, Joint Infection -Implantable Device -Acute Abdominal Infection -Wound Infection -Meningitis -Blood Stream Catheter Infection -Unknown Cardiovascular Complaint Exam - Chest Pain Complaint/Exam Onset: Gradual Duration: 1 day Symptoms Are: Still present Timing: Intermittent Initial Severity: Mild Current Severity: Mild Location: Reports: Discrete, Midsternal Pain Radiates: Reports: None Character: Reports: Aching Aggravating: Reports: None Alleviating: Reports: Spontaneous resolution Associated Signs and Symptoms: Reports: Cough, Short of air. Denies: Diaphoresis, Nausea, Vomiting, Fever, Palpitations, Hemoptysis, Back pain, Abdominal pain, Dizziness, Calf pain, Calf swelling Related History: Reports: Similar episode History of Healthcare-Acquired Pneumonia: Reports: No AMI/ACS Risk Factors: Reports: Dyslipidemia TAD Risk Factors: Reports: None Pulmonary Embolism Risk Factors: Reports: None Prior Care for this Complaint: No Recent Stress Test: No Recent Echo/LV Function: No JVD Present: No Subcutaneous Emphysema Present: No Diminshed Breath Sounds: No Reproducible Chest Wall Pain: No Bilateral Pulses Present: No Unequal Pulses Noted: No If Risk Factors for AMI/ACS Consider: EKG, Cardiac Enzymes <SOLA KESSLER - Last Filed: 07/09/17 18:43> Review of Systems - Review Of Systems Constitutional: Reports: No symptoms Eyes: Reports: No symptoms Ears, Nose, Mouth, Throat: Reports: No symptoms Respiratory: Reports: No symptoms Cardiac: Reports: Chest pain GI: Reports: No symptoms : Reports: No symptoms Musculoskeletal: Reports: No symptoms Skin: Reports: No symptoms Neurological: Reports: No symptoms Endocrine: Reports: No symptoms Hematologic/Lymphatic: Reports: No symptoms All Other Systems: Reviewed and Negative <SOLA KESSLER Filed: 07/09/17 18:43> - Review Of Systems Respiratory: Reports: Cough, Short of air Neurological: Reports: Anxiety <SONIBRENT Last Filed: 07/10/17 03:57> Past Medical History - Past Medical History Previously Healthy: No Endocrine: Reports: Dyslipidemia Cardiovascular: Reports: None Respiratory: Reports: None Hematological: Reports: None Gastrointestinal: Reports: GI Bleed Genitourinary: Reports: Other (prostate cancer) Neuro/Psych: Reports: Anxiety, Depression Musculoskeletal: Reports: None Cancer: Reports: Other (prostate ) Other Pertinent Past Medical History: schizophrenia - Surgical History General Surgical History: Reports: Appendectomy, Other (TURP) - Family History Family History: Reports: None - Social History Smoking Status: Current every day smoker, Heavy tobacco smoker Hx Substance Use: No Alcohol Screening: None - Immunizations Influenza Vaccine within 12 Months: Yes Pneumococcal Vaccine up to Date: No <VICTORIASOLA Filed: 07/09/17 18:43> - Past Medical History Neuro/Psych: Reports: CVA <BRENT SHAFER Filed: 07/10/17 03:57> Physical Exam - Physical Exam Appearance: Well-appearing, No pain distress, Well-nourished Eyes: KURT, EOMI, Conjunctiva clear ENT: Ears normal, Nose normal, Oropharynx normal Respiratory: Airway patent, Breath sounds clear, Breath sounds equal, Respirations nonlabored Cardiovascular: RRR, Pulses normal, No rub, No murmur GI/: Soft, Nontender, No masses, Bowel sounds normal, No Organomegaly Musculoskeletal: Normal strength, ROM intact, No edema, No calf tenderness Skin: Warm, Dry, Normal color Neurological: Sensation intact, Motor intact, Reflexes intact, Cranial nerves intact, Alert, Oriented Psychiatric: Affect appropriate, Mood appropriate <ANITARYLANDSOLA Last Filed: 07/09/17 18:43> Interpretation - Radiology Interpretation Radiology Interpretation By: ED Physician Radiology Results: Negative Exam Interpreted: CXR - EKG Interpretation Time of EKG #1: 18:48 Rate: Normal Rhythm: Sinus Ectopy: None Bayside: Left ST Segment: Normal Interpretation: imcomplet RBBB <BRENT SHAFER - Last Filed: 07/10/17 03:57> Re-Evaluation - Re-Evaluation Time of Re-Evaluation: 20:00 Status: Unchanged (despite Nitrogycerine and GI cocktail.) Vital Signs Stable: Yes <BRENT SHAFER - Last Filed: 07/10/17 03:57> Physician Notification - Case Discussed Physician Notified: soni Time of Notification: 18:45 <SOLA KESSLER - Last Filed: 07/09/17 18:43> Critical Care Note - Critical Care Note Total Time (mins): 0 <SOLA KESSLER - Last Filed: 07/09/17 18:43> <BRENT SHAFER - Last Filed: 07/10/17 03:57> - Critical Care Note Comments: Troponin Negative x 2, 2 hours apart, No EKG changes symptoms likely due to anxiety due to his past history. Will follow up with PCP in the morning for Cardiology consult for stress test. ( BRENT SHAFER) Course - Course Hematology/Chemistry: 07/09/17 18:35 07/09/17 18:35 <BRENT SHAFER - Last Filed: 07/10/17 03:57> - Course Orders, Labs, Meds: Lab Review 07/09/17 07/09/17 07/09/17 18:35 18:35 18:35 WBC 9.24 RBC 4.43 L Hgb 14.8 Hct 41.2 L MCV 93.0 MCH 33.4 H MCHC 35.9 H RDW Coeff of Emil 11.9 Plt Count 204 Immature Gran % (Auto) 0.2 Neut % (Auto) 36.2 Lymph % (Auto) 54.4 H [place] % (Auto) 6.4 Eos % (Auto) 2.3 Baso % (Auto) 0.5 Immature Gran # (Auto) 0.0 Neut # 3.3 Lymph # 5.0 H [place] # 0.6 Eos # 0.2 Baso # 0.1 D-Dimer (Manual) 307.25 Puncture Site O2 Saturation ABG pH ABG pCO2 ABG pO2 ABG HCO3 ABG Total CO2 ABG Base Excess Srini Test FiO2 % Sodium 145 Potassium 3.7 Chloride 111 H Carbon Dioxide 24 Anion Gap 13.7 BUN 16 Creatinine 0.92 Estimated GFR (MDRD) 86.00 BUN/Creatinine Ratio 17.39 Glucose 121 H Calcium 9.0 Total Bilirubin < 0.3 AST 14 L ALT 14 Alkaline Phosphatase 85 Total Creatine Kinase 51 Troponin I < 0.0100 Total Protein 6.6 Albumin 3.6 Globulin 3.0 Albumin/Globulin Ratio 1.20 Influenza A (Rapid) Influenza B (Rapid) 07/09/17 07/09/17 07/09/17 18:47 19:16 21:29 WBC RBC Hgb Hct MCV MCH MCHC RDW Coeff of Emil Plt Count Immature Gran % (Auto) Neut % (Auto) Lymph % (Auto) [place] % (Auto) Eos % (Auto) Baso % (Auto) Immature Gran # (Auto) Neut # Lymph # [place] # Eos # Baso # D-Dimer (Manual) Puncture Site Rr O2 Saturation 97.0 ABG pH 7.459 H ABG pCO2 34.9 L ABG pO2 85.0 ABG HCO3 24.8 ABG Total CO2 26 ABG Base Excess 1 Srini Test + FiO2 % 21.0 Sodium Potassium Chloride Carbon Dioxide Anion Gap BUN Creatinine Estimated GFR (MDRD) BUN/Creatinine Ratio Glucose Calcium Total Bilirubin AST ALT Alkaline Phosphatase Total Creatine Kinase Troponin I 0.0180 Total Protein Albumin Globulin Albumin/Globulin Ratio Influenza A (Rapid) Negative by naat Influenza B (Rapid) Negative by naat Orders Category Date Time Status ABG DRAW REQUEST Stat CARDIO 07/09/17 18:47 Completed EKG-(ED ONLY) Stat CARDIO 07/09/17 18:34 Completed ABG Stat LAB 07/09/17 18:47 Completed CBC W/ AUTO DIFF Stat LAB 07/09/17 18:35 Completed COMPREHENSIVE METABOLIC PANEL Stat LAB 07/09/17 18:35 Completed CREATINE KINASE Stat LAB 07/09/17 18:35 Completed D-DIMER Stat LAB 07/09/17 18:35 Completed FLU A/B MOLECULAR Stat LAB 07/09/17 19:16 Completed TROPONIN I Stat LAB 07/09/17 18:35 Completed TROPONIN I Stat LAB 07/09/17 21:29 Completed Aspirin [Aspirin Chewable] MEDS 07/09/17 20:23 Discontinued 324 mg PO ONCE STA Ketorolac Tromethamine [Toradol] MEDS 07/09/17 20:48 Discontinued 30 mg IVP ONCE STA Mag-Al Plus//Lidocaine [Gi Cocktail] MEDS 07/09/17 21:16 Discontinued 30 ml PO ONCE STA Nitroglycerin [Nitrostat] MEDS 07/09/17 20:22 Discontinued 0.4 mg SL ONCE STA Sodium Chloride 0.9% [Sodium Chloride] 1,000 ml MEDS 07/09/17 20:22 Discontinued IV 100 mls/hr CHEST, 2 VIEWS PA & LAT Stat RADS 07/09/17 19:54 Taken Medications Discontinued Medications Generic Name Dose Route Start Last Admin Trade Name Freq PRN Reason Stop Dose Admin Al Hydroxide/Mg Hydroxide 30 ml 07/09/17 21:16 07/09/17 21:21 Gi Cocktail PO 07/09/17 21:17 30 ml ONCE STA Administration Aspirin 324 mg 07/09/17 20:23 07/09/17 20:35 Aspirin Chewable PO 07/09/17 20:24 324 mg ONCE STA Administration Sodium Chloride 1,000 mls @ 100 mls/hr 07/09/17 20:22 07/09/17 20:36 Sodium Chloride IV 07/10/17 06:21 100 mls/hr .Q10H STA Administration Ketorolac Tromethamine 30 mg 07/09/17 20:48 07/09/17 21:08 Toradol IVP 07/09/17 20:49 30 mg ONCE STA Administration Nitroglycerin 0.4 mg 07/09/17 20:22 07/09/17 20:36 Nitrostat SL 07/09/17 20:23 0.4 mg ONCE STA Administration Vital Signs: Temp Pulse Resp BP Pulse Ox 07/09/17 18:18 98.4 F 75 20 142/84 H 94 L MAYRA Risk Score Age >/= 65: No >/= 3 CAD Risk Factors: No Known CAD (Stenosis >/= 50%): No ASA Use in Past 7 Days: No Severe Angina (>/= 2 episodes in 24 hours): Yes EKG ST Changes >/= 0.5mm: No Postive Cardiac Marker: No MAYRA Total Score: 1 <BRENT SHAFER - Last Filed: 07/10/17 03:57> MAYRA Risk Score: Risk Score Odds of by 30D 0 0.1 (0.1-0.2) 1 0.3 (0.2-0.3) 2 0.4 (0.3-0.5) 3 0.7 (0.6-0.9) 4 1.2 (1.0-1.5) 5 2.2 (1.9-2.6) 6 3.0 (2.5-3.6) 7 4.8 (3.8-6.1) Departure - Departure Pt referred to PMD for follow-up: Yes IPMP verified?: No <SOLA KESSLER - Last Filed: 07/09/17 18:43> - Departure Time of Disposition: 21:21 Transfer Form Completed: Yes Disposition Discussed With: Patient, Family <BRENT SHAFER - Last Filed: 07/10/17 03:57> - Departure Disposition: HOME SELF-CARE Discharge Problem: Anxiety, Dyspepsia Chest pain Qualifiers: Chest pain type: unspecified Qualified Code(s): R07.9 - Chest pain, unspecified Instructions: Chest Pain (ED), Anxiety (ED), Indigestion (ED) Condition: Good Additional Instructions: Follow up with Your clinic in the morning for cardiology consult. take Motrin or Tylenol as needed for pain Return if worse. Prescriptions: Pantoprazole Sodium [Protonix] 40 mg PO ONCE #30 tablet. Allergies/Adverse Reactions: Allergies No Known Allergies Allergy (Verified 07/09/17 18:23) Home Medications: Ambulatory Orders Olanzapine 5 mg PO 0800,1200 12/04/16 Olanzapine [Zyprexa] 20 mg PO BEDTIME 02/11/17 Aripiprazole [Abilify] 2 mg PO d 04/09/17 Clonazepam [Klonopin] 0.5 mg PO BID 04/09/17 Pantoprazole Sodium [Protonix] 40 mg PO ONCE #30 tablet. 07/09/17
[2017-07-09] MEDS ORDERED: NITROSTAT SL STA (20:22)
[2017-07-09] MEDS ORDERED: SODIUM CHLORIDE 1,000 ML IV STA (20:22)
[2017-07-09] MEDS ORDERED: ASPIRIN CHEWABLE PO STA (20:23)
[2017-07-09] MEDS ORDERED: TORADOL IVP STA (20:48)
[2017-07-09] MEDS ORDERED: GI COCKTAIL PO STA (21:16)
--- NOTE | 2017-07-10 07:44 | DI ---
EXAM: CHEST FRONTAL AND LATERAL VIEWS HISTORY: Shortness of breath. COMPARISON: 03/18/2015 FINDINGS: Heart size and mediastinal contour remain within normal limits. There is subtle infiltra te in the left lingular region. Lungs are otherwise clear. There are scattered calcifications sugges ting old granulomatous disease. Normal vascularity. No pleural fluid. IMPRESSION: Subtle density in the left lingular region could represent mild pneumonia. Consider follow-up to assu re resolution.
== END 2017-07-09 22:07 | disposition home or self-care (01) ==
LOC: ED 18:17
DX: R07.9 Chest pain, unspecified (principal); F41.9 Anxiety disorder, unspecified; R10.13 Epigastric pain; R06.02 Shortness of breath; R05 Cough; E78.5 Hyperlipidemia, unspecified; F17.210 Nicotine dependence, cigarettes, uncomplicated
CPT/HCPCS: 36415; 80053; 82550; 82803; 84484; 85025; 85379; 87502; 93005; 93010; 96360; 96372; 99284

== ENCOUNTER 2017-08-23 11:26 | Outpatient (CLI) | payer OTHER ==
[2012-11-05 12:28] VITALS: TEMP 97.5
== END 2017-08-23 11:27 | disposition home or self-care (01) ==
LOC: RHC-LAB 11:26
PROVIDERS: ATTEND Emergency Medicine
DX: E78.5 Hyperlipidemia, unspecified (principal); F20.9 Schizophrenia, unspecified; I10 Essential (primary) hypertension; Z85.46 Personal history of malignant neoplasm of prostate
CPT/HCPCS: 36415; 80053; 80061; 84153; 84443; 85025

== ENCOUNTER 2017-08-27 06:24 | Outpatient (CLI) ==
[2012-11-05 12:28] VITALS: TEMP 97.5
== END 2017-08-27 06:25 | disposition home or self-care (01) ==
LOC: CAR 06:24
PROVIDERS: ATTEND Emergency Medicine
DX: E78.5 Hyperlipidemia, unspecified (principal); I10 Essential (primary) hypertension; R07.2 Precordial pain

== ENCOUNTER 2017-08-28 06:22 | Outpatient (CLI) | payer OTHER ==
[2012-11-05 12:28] VITALS: TEMP 97.5
== END 2017-08-28 06:23 | disposition home or self-care (01) ==
LOC: CAR 06:22
PROVIDERS: ATTEND Emergency Medicine
DX: E78.5 Hyperlipidemia, unspecified (principal); I10 Essential (primary) hypertension; R07.2 Precordial pain

== ENCOUNTER 2017-09-28 12:35 | Emergency (ER) ==
[2017-09-28 12:38] VITALS: BP 135/84; TEMP 98.8; BMI 28.3
--- NOTE | 2017-09-28 13:49 | CT ---
EXAM: CT abdomen pelvis without contrast HISTORY: Right upper quadrant pain for 3 days. Patient with history of appendectomy and prior back stimulator COMPARISON: CT abdomen pelvis 02/28/2017 and numerous priors TECHNIQUE: Serial axial images of the abdomen pelvis were performed from the lung bases through the inferior pelvis without contrast. These were viewed in multiple planes. FINDINGS: There is minimal right middle lobe consolidation. Evaluation is limited due to lack of contrast. The liver is unremarkable. The gallbladder is minima lly distended with no stone or inflammation. The adrenal glands are unremarkable. The kidneys are n ormal with no stone or hydronephrosis. The spleen is normal. The pancreas is unremarkable. The stom ach demonstrates a small hiatal hernia. Small bowel in the abdomen pelvis is unremarkable. There is diverticulosis without diverticulitis. There has been a prior appendectomy. Urinary bladder is partially distended. The prostate is unrema rkable. There is minimal linear density anterior to the abdominal wall at midline. There is degenera tive disease of the lumbosacral junction. IMPRESSION: 1. No acute intra-abdominal or pelvic process to account for patient's symptoms. 2. Minimal right middle lobe consolidation and ground-glass and may represent atelectasis or infecti on. 3. There is a small hiatal hernia with diverticulosis.
--- NOTE | 2017-09-28 13:55 | US ---
Exam: Spaulding-scale and color ultrasonographic evaluation of the abdomen. Limited abdominal ultrasound Comparison: CT abdomen pelvis performed 09/28/2017. Reason for exam: Pain. FINDINGS: The liver measures approximately 12.14 cm in length with a hyperechoic appearing echotextu re. There is no intrahepatic ductal dilatation or perihepatic free fluid seen. There is normal ante grade portal venous flow. The gallbladder wall measures 0.22 cm which is within normal limits. There is no evidence of intralu kiara stone, sludge or polyp seen on this examination. There is a small amount of echogenicity adjacent to the gallbladder that likely represents focal fatt y sparing. The pancreas is not well seen secondary to overlying bowel gas. The right kidney measures approximately 11.1 x 4.9 x 3.9 cm without obvious hydronephrosis or nephrol ithiasis. There is what appears to be a dromedary hump/prominent column of Otoniel. Impression: 1. No imaging evidence of cholecystitis. 2. Suspected hepatic steatosis. 3. Hypoechoic parenchymal findings in the liver adjacent the gallbladder likely represents focal spa ring. If clinical concern exists, further evaluation may be performed. 4. There is likely a prominent appearing call 10. Possible prominent column of Otoniel in the right renal parenchyma If there is clinical concern, further evaluation may be performed. No hydronephrosis or nephrolithiasis is seen in the right kidne y.
--- NOTE | 2017-09-28 14:00 | ED.PDOC ---
General ED Provider: Dr. SOLA KESSLER Chief Complaint: Abdominal Pain Stated Complaint: RIGHT SIDE ABDOMINAL PAIN Time Seen by Physician: 12:34 (SEEN WITH NURSING STAFF) Mode of Arrival: Walk-In Information Source: Patient Exam Limitations: No limitations [facility] Documentation Reviewed and Agree: Yes Reviewed sepsis parameters & appropriate labs ordered?: Yes System Inflammatory Response Syndrome: Not Applicable Sepsis Protocol: For patient's 13 years and over: Temp is 96.8 and below OR 101 and greater Pulse >90 BPM Resp >20/minute Acutely Altered Mental Status Are patient's symptoms suggestive of a new infection, such as: -Pneumonia -Skin, Soft Tissue -Endocarditis -UTI -Bone, Joint Infection -Implantable Device -Acute Abdominal Infection -Wound Infection -Meningitis -Blood Stream Catheter Infection -Unknown System Inflammatory Response Syndrome: Not Applicable GI Complaint Exam - Abdominal Pain Complaint/Exam Onset: Gradual Duration: 1 WEEK Symptoms Are: Still present Timing: Intermittent Initial Severity: Moderate Current Severity: Moderate Location of Pain: RUQ, RLQ Radiates To: Denies: Chest, Back, Flank, LLQ, RLQ, Inguinal Character: Reports: Dull Aggravating: Reports: None Alleviating: Reports: None Associated Signs and Symptoms: Reports: Cough. Denies: Diaphoresis, Fever, Chest pain, Dizziness, Back pain, Constipation, Blood in stool, Dysuria, Urinary frequency, Decreased urine output, Decreased appetite, Discharge, Nausea , Vomiting, Diarrhea, Decreased activity Related History: Reports: Similar episode AAA Risk Factors: Reports: None Cardiac Risk Factors: Reports: Elevated lipids Testicular Torsion Risk Factors: Reports: None Surgical Obstruction Risk Factors: Reports: None Related Surgical History: Reports: None Abdominal Findings: Present: None Review of Systems - Review Of Systems Constitutional: Reports: No symptoms Eyes: Reports: No symptoms Ears, Nose, Mouth, Throat: Reports: No symptoms Respiratory: Reports: No symptoms Cardiac: Reports: No symptoms GI: Reports: Abdominal pain : Reports: No symptoms Musculoskeletal: Reports: No symptoms Skin: Reports: No symptoms Neurological: Reports: No symptoms Endocrine: Reports: No symptoms Hematologic/Lymphatic: Reports: No symptoms All Other Systems: Reviewed and Negative Past Medical History - Past Medical History Previously Healthy: No Endocrine: Reports: Dyslipidemia Cardiovascular: Reports: None Respiratory: Reports: None Hematological: Reports: None Gastrointestinal: Reports: GI Bleed Genitourinary: Reports: Other (prostate cancer) Neuro/Psych: Reports: CVA Musculoskeletal: Reports: None Cancer: Reports: Other (prostate ) Other Pertinent Past Medical History: schizophrenia - Surgical History General Surgical History: Reports: Appendectomy, Other (TURP) - Family History Family History: Reports: None - Social History Smoking Status: Current every day smoker, Heavy tobacco smoker Hx Substance Use: No Alcohol Screening: None - Immunizations Influenza Vaccine within 12 Months: Yes Pneumococcal Vaccine up to Date: No Physical Exam - Physical Exam Appearance: Well-appearing, No pain distress, Well-nourished Eyes: KURT, EOMI, Conjunctiva clear ENT: Ears normal, Nose normal, Oropharynx normal Respiratory: Airway patent, Breath sounds clear, Breath sounds equal, Respirations nonlabored Cardiovascular: RRR, Pulses normal, No rub, No murmur GI/: Soft, Nontender, No masses, Bowel sounds normal, No Organomegaly Musculoskeletal: Normal strength, ROM intact, No edema, No calf tenderness Skin: Warm, Dry, Normal color Neurological: Sensation intact, Motor intact, Reflexes intact, Cranial nerves intact, Alert, Oriented Psychiatric: Affect appropriate, Mood appropriate Interpretation - Radiology Interpretation Radiology Interpretation By: Radiologist Radiology Results: Positive (FATTY LIVER) Critical Care Note - Critical Care Note Total Time (mins): 0 Course - Course Hematology/Chemistry: 09/28/17 12:50 09/28/17 12:50 Orders, Labs, Meds: Lab Review 09/28/17 09/28/17 12:50 12:50 WBC 8.79 RBC 4.41 L Hgb 14.7 Hct 41.5 L MCV 94.1 H MCH 33.3 H MCHC 35.4 RDW Coeff of Emil 12.2 Plt Count 194 Immature Gran % (Auto) 0.2 Neut % (Auto) 54.3 Lymph % (Auto) 37.2 [place] % (Auto) 6.7 Eos % (Auto) 1.3 Baso % (Auto) 0.3 Immature Gran # (Auto) 0.0 Neut # (Auto) 4.8 Lymph # (Auto) 3.3 [place] # (Auto) 0.6 Eos # (Auto) 0.1 Baso # (Auto) 0.0 Sodium 141 Potassium 4.0 Chloride 108 H Carbon Dioxide 23 Anion Gap 14.0 BUN 8 Creatinine 0.89 Estimated GFR (MDRD) 89.00 BUN/Creatinine Ratio 8.98 Glucose 116 H Calcium 9.1 Total Bilirubin 0.5 AST 12 L ALT 14 Alkaline Phosphatase 92 Total Protein 6.9 Albumin 3.7 Globulin 3.2 Albumin/Globulin Ratio 1.16 Amylase 49 Lipase 20 Orders Category Date Time Status NPO REMINDER: IMAGING ONCE CARE 09/28/17 12:45 Active AMYLASE Stat LAB 09/28/17 12:50 Completed CBC W/ AUTO DIFF Stat LAB 09/28/17 12:50 Completed COMPREHENSIVE METABOLIC PANEL Stat LAB 09/28/17 12:50 Completed LIPASE Stat LAB 09/28/17 12:50 Completed URINALYSIS C & S IF INDICATED Stat LAB 09/28/17 13:[address] ABDOMEN/PELVIS WO CONTRAST Stat RADS 09/28/17 12:45 Completed ULTRASOUND ABDOMEN, RT. UPPER QUAD [U/S ABDOMEN, RT. RADS 09/28/17 12:45 Completed UPPER QUAD] Stat Vital Signs: Temp Pulse Resp BP Pulse Ox 09/28/17 12:36 98.8 F 79 20 135/84 97 Departure - Departure Time of Disposition: 14:01 Disposition: HOME SELF-CARE Discharge Problem: Abdominal pain, Fatty liver Instructions: Abdominal Pain (ED), Non-Alcoholic Fatty Liver Disease (ED) Condition: Good Pt referred to PMD for follow-up: Yes IPMP verified?: No Additional Instructions: Please call your Family Physician as soon as possible to schedule a follow-up appointment. Prescriptions: Hydrocodone/Acetaminophen [[place] 10-325 Tablet] 1 each PO Q8HR #7 tablet Allergies/Adverse Reactions: Allergies No Known Allergies Allergy (Verified 09/28/17 12:39) Home Medications: Ambulatory Orders Olanzapine 5 mg PO 0800,1200 12/04/16 Olanzapine [Zyprexa] 20 mg PO BEDTIME 02/11/17 Aripiprazole [Abilify] 2 mg PO d 04/09/17 Clonazepam [Klonopin] 0.5 mg PO BID 04/09/17 Pantoprazole Sodium [Protonix] 40 mg PO ONCE #30 tablet. 07/09/17 Hydrocodone/Acetaminophen [[place] 10-325 Tablet] 1 each PO Q8HR #7 tablet
== END 2017-09-28 14:14 | disposition home or self-care (01) ==
LOC: ED 12:35
DX: K76.0 Fatty (change of) liver, not elsewhere classified (principal); R10.31 Right lower quadrant pain; R10.11 Right upper quadrant pain; F17.210 Nicotine dependence, cigarettes, uncomplicated; E78.5 Hyperlipidemia, unspecified; Z86.73 Personal history of transient ischemic attack (TIA), and cerebral infarction without residual deficits
CPT/HCPCS: 36415; 80053; 81001; 82150; 83690; 85025; 99283

== ENCOUNTER 2017-10-01 14:38 | Outpatient (CLI) ==
[2012-11-05 12:28] VITALS: TEMP 97.5
== END 2017-10-01 14:39 | disposition home or self-care (01) ==
LOC: RHC-LAB 14:38
PROVIDERS: ATTEND Emergency Medicine
DX: K29.51 Unspecified chronic gastritis with bleeding (principal); F20.9 Schizophrenia, unspecified
CPT/HCPCS: 36415; 85025

== ENCOUNTER 2018-02-16 10:20 | Emergency (ER) | payer OTHER ==
[2018-02-16 10:23] VITALS: BP 125/75; TEMP 97.1; BMI 26.9
--- NOTE | 2018-02-16 11:22 | CT ---
Exam: CT scan of the abdomen pelvis without contrast. Date: 02/16/2018. Comparison: 09/28/2017. HISTORY: Bright red blood in the toilet. TECHNIQUE: Helical scan of the abdomen pelvis was performed without contrast. FINDINGS: Granulomatous calcifications are present in the lung bases bilaterally. Minor degenerative changes are seen in the lower thoracic and lumbar spine. An planted battery pack is present in the soft tissues overlying the right gluteal musculature and an electrode is seen extending through the r ight sacral foramen into the right pelvis. The spleen and liver have a uniform attenuation. The gallbladder, stomach, pancreas and adrenal glan ds are normal. The kidneys have a normal morphology. There is a 0.1 cm calcification in the upper p ole of the right kidney. There is no hydronephrosis. No retroperitoneal adenopathy is present. Aor ta has minimal peripheral calcification and does not exceed 3 cm. The small bowel is normal. An wilbert endectomy has been performed. Changes suggestive of a prior ventral abdominal hernia repair are note d. There are a few colonic diverticula but no inflammatory changes. The pelvic sidewall and bladder are normal. There is no free pelvic fluid. The prostate, rectum inguinal regions are normal. Impression: No acute findings in the abdomen or pelvis; diverticulosis without diverticulitis. Give n the patient's history of bright red blood per rectum, colonoscopy would be recommended for further evaluation. ASVD. 0.1-cm nonobstructing right renal calculus.
[2018-02-16] MEDS ORDERED: SODIUM CHLORIDE 1,000 ML IV STA (11:25)
[2018-02-16] MEDS ORDERED: TORADOL IVP STA (11:25)
--- NOTE | 2018-02-16 11:26 | ED.PDOC ---
General ED Provider: Dr. BRENT SHAFER Chief Complaint: Non-specific Complaint Stated Complaint: Patient states that he has had pain on the right side of abdomen and right groin area sparing the scrotum. The pain got worse yesterday when he went to move a family Member. His PCP had thought it was a hernia and ordred a ct to be done as an outpatient in 3 days. Also states that when he went to move his bowels, He noticed blood in the stool. Also noticed blood in the urine. Time Seen by Physician: 10:30 Mode of Arrival: Walk-In Information Source: Patient Primary Care Provider: JAMES MARSH Nursing and Triage Documentation Reviewed and Agree: Yes Does patient meet sepsis criteria?: No System Inflammatory Response Syndrome: Not Applicable Sepsis Protocol: For patient's 13 years and over: Temp is 96.8 and below OR 101 and greater Pulse >90 BPM Resp >20/minute Acutely Altered Mental Status Are patient's symptoms suggestive of a new infection, such as: -Pneumonia -Skin, Soft Tissue -Endocarditis -UTI -Bone, Joint Infection -Implantable Device -Acute Abdominal Infection -Wound Infection -Meningitis -Blood Stream Catheter Infection -Unknown Review of Systems - Review Of Systems Constitutional: Reports: No symptoms Eyes: Reports: No symptoms Ears, Nose, Mouth, Throat: Reports: No symptoms Respiratory: Reports: No symptoms Cardiac: Reports: No symptoms GI: Reports: Abdominal pain (Right lower quadrant ), Nausea, Poor appetite : Reports: Hematuria Musculoskeletal: Reports: No symptoms Skin: Reports: No symptoms Neurological: Reports: No symptoms Endocrine: Reports: No symptoms Hematologic/Lymphatic: Reports: No symptoms All Other Systems: Reviewed and Negative Past Medical History - Past Medical History Previously Healthy: No Endocrine: Reports: Dyslipidemia Cardiovascular: Reports: None Respiratory: Reports: None Hematological: Reports: None Gastrointestinal: Reports: GI Bleed Genitourinary: Reports: Other (prostate cancer) Neuro/Psych: Reports: CVA Musculoskeletal: Reports: None Cancer: Reports: Other (prostate ) Other Pertinent Past Medical History: schizophrenia - Surgical History General Surgical History: Reports: Appendectomy, Other (TURP) - Family History Family History: Reports: None - Social History Smoking Status: Current every day smoker, Heavy tobacco smoker Hx Substance Use: No Alcohol Screening: None - Immunizations Tetanus Shot up to Date: No Influenza Vaccine within 12 Months: Yes Pneumococcal Vaccine up to Date: No Physical Exam - Physical Exam Appearance: Well-appearing, No pain distress, Well-nourished Eyes: KURT, EOMI, Conjunctiva clear ENT: Ears normal, Nose normal, Oropharynx normal Respiratory: Airway patent, Breath sounds clear, Breath sounds equal, Respirations nonlabored Cardiovascular: RRR, Pulses normal, No rub, No murmur GI/: Soft, Nontender, No masses, Bowel sounds normal, No Organomegaly, Tender (mild right lower quadrant tenderness no Rebound.) Musculoskeletal: Normal strength, ROM intact, No edema, No calf tenderness Skin: Warm, Dry, Normal color Neurological: Sensation intact, Motor intact, Reflexes intact, Cranial nerves intact, Alert, Oriented Psychiatric: Affect appropriate, Mood appropriate Critical Care Note - Critical Care Note Total Time (mins): 0 Course - Course Hematology/Chemistry: 02/16/18 11:00 02/16/18 11:00 Orders, Labs, Meds: Lab Review 02/16/18 02/16/18 02/16/18 11:00 11:00 11:50 WBC 8.46 RBC 4.47 L Hgb 14.8 Hct 42.7 MCV 95.5 H MCH 33.1 H MCHC 34.7 RDW Coeff of Emil 12.8 Plt Count 201 Immature Gran % (Auto) 0.4 Neut % (Auto) 55.9 Lymph % (Auto) 35.8 [place] % (Auto) 7.0 Eos % (Auto) 0.7 Baso % (Auto) 0.2 Immature Gran # (Auto) 0.0 Neut # (Auto) 4.7 Lymph # (Auto) 3.0 [place] # (Auto) 0.6 Eos # (Auto) 0.1 Baso # (Auto) 0.0 Sodium 140.8 Potassium 3.99 Chloride 109.4 H Carbon Dioxide 23.6 Anion Gap 11.79 BUN 12.9 Creatinine 0.87 Estimated GFR (MDRD) 91.00 BUN/Creatinine Ratio 14.82 Glucose 86.7 Calcium 8.99 Total Bilirubin 0.41 AST 34.2 ALT 19.4 Alkaline Phosphatase 81.7 Total Protein 7.18 Albumin 4.09 Globulin 3.09 Albumin/Globulin Ratio 1.32 Amylase 70.6 Lipase 65.3 Urine Color Yellow Urine Clarity Clear Urine pH 6.0 Ur Specific [place] 1.010 Urine Protein Negative Urine Glucose (UA) Negative Urine Ketones Negative Urine Blood Negative Urine Nitrite Negative Urine Bilirubin Negative Urine Urobilinogen 0.2 Ur Leukocyte Esterase Negative Orders Category Date Time Status AMYLASE Stat LAB 02/16/18 11:00 Completed CBC W/ AUTO DIFF Stat LAB 02/16/18 11:00 Completed COMPREHENSIVE METABOLIC PANEL Stat LAB 02/16/18 11:00 Completed LIPASE Stat LAB 02/16/18 11:00 Completed URINALYSIS C & S IF INDICATED Stat LAB 02/16/18 11:50 Completed Ketorolac Tromethamine [Toradol] MEDS 02/16/18 11:25 Discontinued 30 mg IVP ONCE STA Ondansetron HCl/Pf [Zofran 4 mg/2 ml] MEDS 02/16/18 11:29 Discontinued 4 mg IVP ONCE STA Sodium Chloride 0.9% [Sodium Chloride] 1,000 ml MEDS 02/16/18 11:[address] ABD/PEL WO RENAL STONE PROT Stat RADS 02/16/18 10:52 Completed Medications Discontinued Medications Generic Name Dose Route Start Last Admin Trade Name Freq PRN Reason Stop Dose Admin Sodium Chloride 1,000 mls @ 1,000 mls/hr 02/16/18 11:25 02/16/18 12:17 Sodium Chloride IV 02/16/18 12:24 1,000 mls/hr BOLUS STA Administration Ketorolac Tromethamine 30 mg 02/16/18 11:25 02/16/18 12:16 Toradol IVP 02/16/18 11:26 30 mg ONCE STA Administration Ondansetron HCl 4 mg 02/16/18 11:29 02/16/18 12:16 Zofran 4 Mg/2 Ml IVP 02/16/18 11:30 4 mg ONCE STA Administration Vital Signs: Temp Pulse Resp BP Pulse Ox 02/16/18 10:20 97.1 F L 72 16 125/75 96 Departure - Departure Time of Disposition: 13:05 Disposition: HOME SELF-CARE Discharge Problem: Abdominal pain in male, Lower gastrointestinal bleed Instructions: Gastrointestinal Bleeding (ED) Condition: Stable Pt referred to PMD for follow-up: Yes IPMP verified?: No Additional Instructions: Push fluids Follow up with PCP in 3 days for outpatient colonoscopy Prescriptions: Dicyclomine HCl [Bentyl] 10 mg PO TID PRN #20 capsule PRN Reason: Abdominal Pain Ibuprofen [Motrin] 600 mg PO Q6H PRN #30 tablet PRN Reason: Analgesia Allergies/Adverse Reactions: Allergies No Known Allergies Allergy (Verified 02/16/18 10:23) Home Medications: Ambulatory Orders Olanzapine 5 mg PO 0800,1200 12/04/16 Olanzapine [Zyprexa] 20 mg PO BEDTIME 02/11/17 Aripiprazole [Abilify] 2 mg PO d 04/09/17 Clonazepam [Klonopin] 0.5 mg PO BID 04/09/17 Pantoprazole Sodium [Protonix] 40 mg PO ONCE #30 tablet. 07/09/17 Dicyclomine HCl [Bentyl] 10 mg PO TID PRN #20 capsule 02/16/18 Ibuprofen [Motrin] 600 mg PO Q6H PRN #30 tablet 02/16/18 Disposition Discussed With: Patient, Family
[2018-02-16] MEDS ORDERED: ZOFRAN 4 MG/2 ML IVP STA (11:29)
== END 2018-02-16 13:21 | disposition home or self-care (01) ==
LOC: ED 10:20
DX: K92.1 Melena (principal); R10.31 Right lower quadrant pain; E78.5 Hyperlipidemia, unspecified; F17.210 Nicotine dependence, cigarettes, uncomplicated; Z79.899 Other long term (current) drug therapy; Z85.46 Personal history of malignant neoplasm of prostate; Z86.73 Personal history of transient ischemic attack (TIA), and cerebral infarction without residual deficits
CPT/HCPCS: 36415; 74176; 80053; 81001; 82150; 83690; 85025; 96360; 96375; 99283

== ENCOUNTER 2018-05-29 13:02 | Outpatient (POV) ==
[2012-11-05 12:28] VITALS: TEMP 97.5
[2018-05-11 12:57] VITALS: BMI 26.4
== END 2018-05-29 17:00 ==
LOC: OUTPT 13:02
PROVIDERS: ATTEND Otolaryngology
DX: R42 Dizziness and giddiness (principal)
CPT/HCPCS: 92557; 92567

== ENCOUNTER 2018-07-12 18:52 | Emergency (ER) | payer OTHER ==
[2018-07-12 19:00] VITALS: BP 128/82; TEMP 98.8; BMI 27.1
--- NOTE | 2018-07-12 20:08 | CT ---
EXAM: CT scan of the abdomen pelvis without contrast HISTORY: Unable to urinate lower abdominal pain TECHNIQUE: Helical imaging of the abdomen pelvis was performed without contrast. 3 mm thin axial im ages and coronal and sagittal reconstructions were provided for interpretation. Comparison 09/28/2017. FINDINGS: The liver, spleen, pancreas, adrenal glands and kidneys appear normal. The proximal urete rs are normal size. There is a small nonobstructing calculus seen within the upper pole of the right kidney. The small and large bowel loops are normal caliber. There is no free air. No retroperiton eal abnormalities are seen. There has been previous appendectomy. The helical images obtained through the pelvis demonstrate a normal appearance of the rectum, urinary bladder. There is diverticular disease of the sigmoid colon without acute inflammation. Lung bases are clear. No lytic or blastic lesions are seen within the osseous structures. IMPRESSION: There is no ureteral obstruction. There is no bowel obstruction. Diverticular disease of the sigmoid colon without acute inflammation. Previous appendectomy.
--- NOTE | 2018-07-12 20:17 | ED.PDOC ---
General ED Provider: Dr. ABBY CASEY-ER Chief Complaint: Urinary Problem Stated Complaint: im hving trouble peeing Time Seen by Physician: 19:00 Mode of Arrival: Walk-In Information Source: Patient Exam Limitations: No limitations [facility] and Triage Documentation Reviewed and Agree: Yes Does patient meet sepsis criteria?: No System Inflammatory Response Syndrome: Not Applicable Sepsis Protocol: For patient's 13 years and over: Temp is 96.8 and below OR 101 and greater Pulse >90 BPM Resp >20/minute Acutely Altered Mental Status Are patient's symptoms suggestive of a new infection, such as: -Pneumonia -Skin, Soft Tissue -Endocarditis -UTI -Bone, Joint Infection -Implantable Device -Acute Abdominal Infection -Wound Infection -Meningitis -Blood Stream Catheter Infection -Unknown Complaint Exam - Complaint/Exam Symptoms Are: Still present Initial Severity: Mild Current Severity: Mild Aggravating: Reports: None Alleviating: Reports: None Associated Signs and Symptoms: Reports: Decreased urine output. Denies: Diaphoresis, Back pain, Fever, Hematuria, Dysuria, Constipation, Blood in stool , Rectal pain, Appetite change, Nausea, Vomiting Testicular Torsion Risk Factors: Reports: None Abdominal Findings: Present: None Differential Diagnoses: Prostatitis, Other Review of Systems - Review Of Systems Constitutional: Reports: No symptoms Eyes: Reports: No symptoms Ears, Nose, Mouth, Throat: Reports: No symptoms Respiratory: Reports: No symptoms Cardiac: Reports: No symptoms GI: Reports: No symptoms : Reports: Other Musculoskeletal: Reports: No symptoms Skin: Reports: No symptoms Neurological: Reports: No symptoms Endocrine: Reports: No symptoms Hematologic/Lymphatic: Reports: No symptoms All Other Systems: Reviewed and Negative Past Medical History - Past Medical History Previously Healthy: No Endocrine: Reports: Dyslipidemia Cardiovascular: Reports: None Respiratory: Reports: None Hematological: Reports: None Gastrointestinal: Reports: GI Bleed Genitourinary: Reports: Other (prostate cancer) Neuro/Psych: Reports: CVA (6 years ago ) Musculoskeletal: Reports: None Cancer: Reports: Other (prostate ) Other Pertinent Past Medical History: schizophrenia - Surgical History General Surgical History: Reports: Appendectomy, Other (TURP) - Family History Family History: Reports: None - Social History Smoking Status: Current every day smoker, Heavy tobacco smoker Hx Substance Use: No Alcohol Screening: None - Immunizations Tetanus Shot up to Date: Yes Influenza Vaccine within 12 Months: Yes Pneumococcal Vaccine up to Date: No Physical Exam - Physical Exam Appearance: Well-appearing, No pain distress, Well-nourished Eyes: KUTR, EOMI, Conjunctiva clear ENT: Ears normal, Nose normal, Oropharynx normal Neck: Supple Respiratory: Airway patent Cardiovascular: RRR, Pulses normal, No rub, No murmur GI/: Soft Musculoskeletal: Normal strength, ROM intact, No edema, No calf tenderness Skin: Warm, Dry, Normal color Neurological: Sensation intact, Motor intact, Reflexes intact, Cranial nerves intact, Alert, Oriented Psychiatric: Affect appropriate, Mood appropriate Interpretation - Radiology Interpretation Radiology Interpretation By: Radiologist Radiology Results: Negative Exam Interpreted: CT Scan Critical Care Note - Critical Care Note Total Time (mins): 0 Course - Course Hematology/Chemistry: 07/12/18 19:19 07/12/18 19:19 Orders, Labs, Meds: Lab Review 07/12/18 07/12/18 19:19 19:19 WBC 10.20 RBC 4.79 Hgb 15.8 Hct 45.0 MCV 93.9 MCH 33.0 H MCHC 35.1 RDW Coeff of Emil 12.1 Plt Count 211 Immature Gran % (Auto) 0.2 Neut % (Auto) 40.2 Lymph % (Auto) 51.2 [place] % (Auto) 5.9 Eos % (Auto) 2.0 Baso % (Auto) 0.5 Immature Gran # (Auto) 0.0 Neut # (Auto) 4.1 Lymph # (Auto) 5.2 [place] # (Auto) 0.6 Eos # (Auto) 0.2 Baso # (Auto) 0.1 Sodium 144.7 Potassium 3.41 L Chloride 108.0 H Carbon Dioxide 25.1 Anion Gap 15.01 BUN 11.9 Creatinine 0.94 Estimated GFR (MDRD) 84.00 BUN/Creatinine Ratio 12.65 Glucose 105.1 Calcium 8.89 Orders Category Date Time Status Bladder Scan [ED BLADDER SCAN] .ONCE EMERGENCY 07/12/18 18:54 Active BMP [BASIC METABOLIC PANEL] Stat LAB 07/12/18 19:19 Completed CBC W/ AUTO DIFF Stat LAB 07/12/18 19:19 Completed UA [URINALYSIS C & S IF INDICATED] Stat LAB 07/12/18 19:[address] ABDOMEN/PELVIS WO CONTRAST Stat RADS 07/12/18 19:25 Completed Vital Signs: Temp Pulse Resp BP Pulse Ox 07/12/18 18:53 98.8 F 84 20 128/82 96 Departure - Departure Time of Disposition: 20:16 Disposition: HOME SELF-CARE Discharge Problem: Urinary retention Instructions: Urinary Retention in Men (ED) Condition: Good Pt referred to PMD for follow-up: Yes IPMP verified?: No Additional Instructions: flomax 0.4mg q hs #30--f/u with urology Allergies/Adverse Reactions: Allergies No Known Allergies Allergy (Verified 07/12/18 19:01) Home Medications: Ambulatory Orders Aripiprazole [Abilify] 2 mg PO d 04/09/17 Lorazepam [Ativan] 0.5 mg PO TID PRN #15 tablet 05/11/18 Disposition Discussed With: Patient
== END 2018-07-12 20:23 | disposition home or self-care (01) ==
LOC: ED 18:52
DX: R33.9 Retention of urine, unspecified (principal); E78.5 Hyperlipidemia, unspecified; F17.210 Nicotine dependence, cigarettes, uncomplicated; Z79.899 Other long term (current) drug therapy; Z87.19 Personal history of other diseases of the digestive system; Z85.46 Personal history of malignant neoplasm of prostate; Z86.73 Personal history of transient ischemic attack (TIA), and cerebral infarction without residual deficits
CPT/HCPCS: 36415; 51798; 80048; 85025; 99283

== ENCOUNTER 2018-12-14 12:37 | Emergency (ER) ==
[2018-12-14 12:43] VITALS: BP 137/87; TEMP 98.5; BMI 27.3
[2018-12-14] MEDS ORDERED: LACTATED RINGERS 1,000 ML IV STA (13:12)
[2018-12-14] MEDS ORDERED: PROTONIX IV IVP STA (13:12)
[2018-12-14] MEDS ORDERED: MORPHINE 4 MG/ML SYRINGE IVP STA (13:12)
[2018-12-14] MEDS ORDERED: ZOFRAN 4 MG/2 ML IVP STA (13:12)
--- NOTE | 2018-12-14 13:17 | ED.PDOC ---
General ED Provider: Dr. BRENT SHAFER Chief Complaint: Abdominal Pain Stated Complaint: Patient is a 53 year old male who comes to the ER with complaints of diffuse abdominal pain nausea and vomiting for 3 days Time Seen by Physician: 13:17 Mode of Arrival: Walk-In Information Source: [facility] Nursing and Triage Documentation Reviewed and Agree: Yes Does patient meet sepsis criteria?: No System Inflammatory Response Syndrome: Not Applicable Sepsis Protocol: For patient's 13 years and over: Temp is 96.8 and below OR 101 and greater Pulse >90 BPM Resp >20/minute Acutely Altered Mental Status Are patient's symptoms suggestive of a new infection, such as: -Pneumonia -Skin, Soft Tissue -Endocarditis -UTI -Bone, Joint Infection -Implantable Device -Acute Abdominal Infection -Wound Infection -Meningitis -Blood Stream Catheter Infection -Unknown GI Complaint Exam - Abdominal Pain Complaint/Exam Onset: Gradual Duration: 3 days Symptoms Are: Still present Timing: Constant Initial Severity: Moderate Current Severity: Severe Location of Pain: Diffuse Character: Reports: Aching, Cramping Aggravating: Reports: None Alleviating: Reports: None Associated Signs and Symptoms: Reports: Nausea, Diarrhea. Denies: Diaphoresis, Fever, Cough, Chest pain, Dizziness, Back pain, Constipation, Blood in stool, Dysuria, Urinary frequency, Decreased urine output, Decreased appetite, Discharge, Decreased activity AAA Risk Factors: Reports: None Cardiac Risk Factors: Reports: None Testicular Torsion Risk Factors: Reports: None Surgical Obstruction Risk Factors: Reports: None Abdominal Findings: Present: None. Absent: Rebound tenderness, Peritoneal signs , McBurney's Point tender Differential Diagnoses: Bowel Obstruction, Gastroenteritis, Ureteral Stone Review of Systems - Review Of Systems Constitutional: Reports: No symptoms Eyes: Reports: No symptoms Ears, Nose, Mouth, Throat: Reports: No symptoms Respiratory: Reports: No symptoms Cardiac: Reports: No symptoms GI: Reports: Abdominal pain, Diarrhea (3 times a day no blood and no mucus), Nausea : Reports: No symptoms Musculoskeletal: Reports: No symptoms Skin: Reports: No symptoms Neurological: Reports: Anxiety Endocrine: Reports: No symptoms Hematologic/Lymphatic: Reports: No symptoms All Other Systems: Reviewed and Negative Past Medical History - Past Medical History Previously Healthy: No Endocrine: Reports: Dyslipidemia Cardiovascular: Reports: None Respiratory: Reports: None Hematological: Reports: None Gastrointestinal: Reports: GI Bleed, Other (Diverticulosis ) Genitourinary: Reports: Other (prostate cancer) Neuro/Psych: Reports: CVA (6 years ago ), Depression, Bipolar Disorder Musculoskeletal: Reports: None Cancer: Reports: Other (prostate ) Other Pertinent Past Medical History: schizophrenia - Surgical History General Surgical History: Reports: Appendectomy, Cholecystectomy, Hernia Repair , Other (TURP) - Family History Family History: Reports: None - Social History Smoking Status: Current every day smoker Hx Substance Use: No Alcohol Screening: None - Immunizations Tetanus Shot up to Date: Yes Influenza Vaccine within 12 Months: Yes Pneumococcal Vaccine up to Date: No Physical Exam - Physical Exam Appearance: Ill-appearing Ill-appearing: Moderate Pain Distress: Severe Neck: Supple Respiratory: Airway patent, Breath sounds clear, Breath sounds equal, Respirations nonlabored Cardiovascular: RRR, Pulses normal, No rub, No murmur GI/: Soft, Tender Musculoskeletal: Normal strength, ROM intact, No edema, No calf tenderness Skin: Warm, Dry, Normal color Neurological: Alert, Oriented Psychiatric: Anxious Interpretation - Radiology Interpretation Radiology Interpretation By: Radiologist Radiology Results: No acute changes (Diverticulosis.) Exam Interpreted: CT Scan Re-Evaluation - Re-Evaluation Time of Re-Evaluation: 14:25 Status: Improved Vital Signs Stable: Yes Pain Level: better Critical Care Note - Critical Care Note Total Time (mins): 30 Course - Course Hematology/Chemistry: 12/14/18 13:00 12/14/18 13:00 Orders, Labs, Meds: Lab Review 12/14/18 12/14/18 12/14/18 13:00 13:00 13:00 WBC 8.84 RBC 4.73 Hgb 16.0 Hct 44.8 MCV 94.7 H MCH 33.8 H MCHC 35.7 H RDW Coeff of Emil 12.2 Plt Count 227 Immature Gran % (Auto) 0.2 Neut % (Auto) 55.7 Lymph % (Auto) 37.2 [place] % (Auto) 6.0 Eos % (Auto) 0.3 Baso % (Auto) 0.6 Immature Gran # (Auto) 0.0 Neut # (Auto) 4.9 Lymph # (Auto) 3.3 [place] # (Auto) 0.5 Eos # (Auto) 0.0 Baso # (Auto) 0.1 Sodium 142.3 Potassium 3.83 Chloride 104.6 Carbon Dioxide 25.8 Anion Gap 15.73 BUN 9.9 Creatinine 1.03 Estimated GFR (MDRD) 75.00 BUN/Creatinine Ratio 9.61 Glucose 105.3 Calcium 9.40 Total Bilirubin 0.89 AST 19.7 ALT 17.3 Alkaline Phosphatase 97.6 Total Protein 7.82 Albumin 4.74 Globulin 3.08 Albumin/Globulin Ratio 1.53 Amylase 85.1 Lipase 103.6 Urine Color Yellow Urine Clarity Clear Urine pH 5.5 Ur Specific [place] 1.015 Urine Protein Negative Urine Glucose (UA) Negative Urine Ketones Negative Urine Blood Trace-intact Urine Nitrite Negative Urine Bilirubin Negative Urine Urobilinogen 0.2 Ur Leukocyte Esterase Negative Urine Microscopic RBC 2-5 Urine Microscopic WBC 0-2 Ur Squamous Epith Cells 0-2 Urine Bacteria Trace Urine Mucus 1+ Orders Category Date Time Status ED IV/MEDIPORT/POWERPORT .ONCE EMERGENCY 12/14/18 13:12 Active AMYLASE Stat LAB 12/14/18 13:00 Completed CBC W/ AUTO DIFF Stat LAB 12/14/18 13:00 Completed COMPREHENSIVE METABOLIC PANEL Stat LAB 12/14/18 13:00 Completed LIPASE Stat LAB 12/14/18 13:00 Completed URINALYSIS C & S IF INDICATED Stat LAB 12/14/18 13:00 Completed 0.9 % Sodium Chloride [Saline Flush] MEDS 12/14/18 13:12 Active 1 syr IVF PRN PRN Morphine Sulfate [Morphine 4 mg/ml Syringe] MEDS 12/14/18 13:12 Discontinued 2 mg IVP ONCE STA Ondansetron HCl/Pf [Zofran 4 mg/2 ml] MEDS 12/14/18 13:12 Discontinued 4 mg IVP ONCE STA Pantoprazole Sodium [Protonix IV] MEDS 12/14/18 13:12 Discontinued 40 mg IVP ONCE STA Ringers Lactated Solution [Lactated Ringers] 1,000 ml MEDS 12/14/18 13:[address] ABD/PEL WO RENAL STONE PROT Stat RADS 12/14/18 13:12 Completed Medications Generic Name Dose Route Start Last Admin Trade Name Freq PRN Reason Stop Dose Admin Sodium Chloride 1 syr 12/14/18 13:12 12/14/18 13:27 Saline Flush IVF 1 syr PRN PRN Administration To flush IV Discontinued Medications Generic Name Dose Route Start Last Admin Trade Name Freq PRN Reason Stop Dose Admin Lactated Ringer's 1,000 mls @ 1,000 mls/hr 12/14/18 13:12 12/14/18 13:27 Lactated Ringers IV 12/14/18 14:11 1,000 mls/hr BOLUS STA Administration Morphine Sulfate 2 mg 12/14/18 13:12 12/14/18 13:27 Morphine 4 Mg/Ml Syringe IVP 12/14/18 13:13 2 mg ONCE STA Administration Ondansetron HCl 4 mg 12/14/18 13:12 12/14/18 13:27 Zofran 4 Mg/2 Ml IVP 12/14/18 13:13 4 mg ONCE STA Administration Pantoprazole Sodium 40 mg 12/14/18 13:12 12/14/18 13:27 Protonix Iv IVP 12/14/18 13:13 40 mg ONCE STA Administration Vital Signs: Temp Pulse Resp BP Pulse Ox 12/14/18 12:38 98.5 F 79 18 137/87 97 Departure - Departure Time of Disposition: 14:26 Disposition: HOME SELF-CARE Discharge Problem: Abdominal pain, Gastroenteritis and colitis, viral Instructions: Gastroenteritis (ED), Dehydration (ED) Condition: Stable Pt referred to PMD for follow-up: Yes IPMP verified?: No Additional Instructions: Push fluids take medications as needed for cramps and diarrhea Follow up with PCP in 3 days Prescriptions: Dicyclomine HCl [Bentyl] 10 mg PO TID PRN #20 capsule PRN Reason: Abdominal Pain Diphenoxylate HCl/Atropine [Lomotil 2.5-0.025 mg Tablet] 1 each PO TID PRN #15 tablet PRN Reason: Diarrhea Ondansetron [Zofran Odt] 4 mg PO Q8H #12 tab.rapdis Allergies/Adverse Reactions: Allergies No Known Allergies Allergy (Verified 12/14/18 12:48) Home Medications: Ambulatory Orders Dicyclomine HCl [Bentyl] 10 mg PO TID PRN #20 capsule 12/14/18 Diphenoxylate HCl/Atropine [Lomotil 2.5-0.025 mg Tablet] 1 each PO TID PRN #15 tablet 12/14/18 Ondansetron [Zofran Odt] 4 mg PO Q8H #12 tab.rapdis 12/14/18
--- NOTE | 2018-12-14 13:49 | CT ---
EXAM: CT abdomen and pelvis without contrast. HISTORY: Diffuse abdominal pain. TECHNIQUE: Multi-slice transaxial helical CT. Coronal and sagittal reformatons were performed. COMPARISON: 07/12/2018 FINDINGS: The heart is normal in size. T minimal atelectasis or scarring is seen within the lingula. A calcif ied granuloma is seen within the left lung base. Evaluation of the solid organs is limited without IV contrast. The spleen is normal in size. Small perisplenic splenule is seen. The gallbladder is normal in size. The pancreas and the bilateral adr enal glands appear grossly unremarkable. No hydronephrosis or renal calculus is seen. No intrahepat ic biliary ductal dilation is seen. The bowel is not dilated. Small ventral abdominal hernia mesh repair is seen. Right flank stimulato r device is seen with lead extending towards the right sacrum. Urinary bladder is not well distended . A few diverticuli are seen within the colon without evidence of diverticulitis. Operative changes of the cecum is seen. The appendix is not identified. No pelvic free fluid is seen. Mild to moder ate scattered calcified plaques are present within the abdominal aorta. Moderate disc space narrowin g with small endplate osteophytes are seen at L5-S1. IMPRESSION: 1. No acute abdominal findings. 2. No hydronephrosis, bowel obstruction, or intra-abdominal inflammation. 3. Colonic diverticulosis. 4. Multiple operative and incidental findings as detailed above.
== END 2018-12-14 14:39 | disposition home or self-care (01) ==
LOC: ED 12:37
DX: A08.4 Viral intestinal infection, unspecified (principal); R10.84 Generalized abdominal pain; E78.5 Hyperlipidemia, unspecified; F17.210 Nicotine dependence, cigarettes, uncomplicated; Z87.19 Personal history of other diseases of the digestive system; Z86.73 Personal history of transient ischemic attack (TIA), and cerebral infarction without residual deficits
CPT/HCPCS: 36415; 80053; 81001; 82150; 83690; 85025; 96361; 96374; 96375; 99283

== ENCOUNTER 2019-05-02 10:31 | Observation (INO) ==
--- NOTE | 2019-05-02 11:32 | DI ---
EXAM: Chest one view HISTORY: Chest pain COMPARISON: 05/08/2018 TECHNIQUE: Single view of the chest was performed FINDINGS: The lungs are clear. There is no pleural effusion or pneumothorax. The heart is normal i n size. The mediastinal contour is normal. There are no acute abnormalities of the bones. IMPRESSION: No acute cardiopulmonary process.
--- NOTE | 2019-05-02 12:45 | CT ---
EXAM: CT cervical spine. HISTORY: Cervical spine pain. TECHNIQUE: CT cervical spine without contrast. Detailed axial sections. Coronal and sagittal re-fo rmations. COMPARISON: None FINDINGS: No fracture or loss of vertebral body height. There is no spondylolisthesis. Facet joints are sanchez lly covered. Lateral masses of C1 and C2 are normally aligned and the odontoid process is intact. Minimal degenerative disc and facet disease. There is no central canal or neural foraminal stenosis suggested. IMPRESSION: 1. Mild degenerative changes of the cervical spine.
--- NOTE | 2019-05-02 13:22 | ED.PDOC ---
General ED Provider: Dr. SOLA KESSLER Chief Complaint: Extremity Pain/Injury Stated Complaint: left arm pain , neck pain had chest pain 1 day ago but pain free on arrival denied injury Time Seen by Physician: 10:40 Mode of Arrival: Walk-In Information Source: Patient Exam Limitations: No limitations Primary Care Provider: ROBERT VELASQUEZ MD Nursing and Triage Documentation Reviewed and Agree: Yes Does patient meet sepsis criteria?: No If yes, has appropriate treatment been initiated?: No System Inflammatory Response Syndrome: Not Applicable Sepsis Protocol: For patient's 13 years and over: Temp is 96.8 and below OR 101 and greater Pulse >90 BPM Resp >20/minute Acutely Altered Mental Status Are patient's symptoms suggestive of a new infection, such as: -Pneumonia -Skin, Soft Tissue -Endocarditis -UTI -Bone, Joint Infection -Implantable Device -Acute Abdominal Infection -Wound Infection -Meningitis -Blood Stream Catheter Infection -Unknown Miscellaneous Complaint Exam Complex/Multi-System Complaint/Exam Onset/Duration: 3 days Symptoms Are: Still present Episodes Lasting: Days Initial Severity: Moderate Current Severity: Mild Location of Pain: left arm , neck Pain Radiates to: left arm Character: tingling sensation Aggravating: movements Alleviating: none Associated Signs and Symptoms: Denies Decreased responsiveness, Confusion, Ag itation, Dizziness, Weakness, Syncope, Headache, Short of air, Cough, Wheezing, Hemoptysis, Chest pain, Palpitations, Edema, Nausea, Vomiting, Diarrhea, Abdominal pain, Back pain, Dysuria, Hematemesis, Melena, Decreased oral intake, Fever, Diaphoresis, Immunocompromised, Anticoagulation Therapy, Recent medication changes, Indwelling medical sales consultant, Prior MRSA, Prior VRE, Recent trauma and Remote trauma Recent Echo/LV Function: No Respiratory Distress: None JVD Present: No Tachypnea Present: No Stridor Present: No Abdominal Findings: Present Normal findings Glascow Coma Scale (see protocol): 15 Focal Weakness: Present None Focal Sensory Loss: Present None Gait: Normal Gag Reflex Present: Yes Babinski Sign: Negative Right and Negative Left Skin Findings: Present Normal findings Joint Swelling Present: No In-Dwelling Device Present: No Differential Diagnosis: Cardiac Ischemia and Other (c spine disc disease ) Quality Indicators for Cardiac Chest Pain: EKG in 10min. Quality Indicators for AMI: EKG in 10min. Quality Indicator For Non-Traumatic Chest Pain/Syncope: EKG Performed Review of Systems Review Of Systems Constitutional: Reports No symptoms Eyes: Reports No symptoms Ears, Nose, Mouth, Throat: Reports No symptoms Respiratory: Reports No symptoms Cardiac: Reports No symptoms GI: Reports No symptoms : Reports No symptoms Musculoskeletal: Reports Other (arm pain) Skin: Reports No symptoms Neurological: Reports No symptoms Endocrine: Reports No symptoms Hematologic/Lymphatic: Reports No symptoms All Other Systems: Reviewed and Negative [facility] Medical History (Updated 05/02/19 @ 13:21 by SOLA KESSLER MD) Bipolar disorder Hyperlipidemia Malignant tumor of prostate (~2013) Schizophrenia Family History Father Malignant neoplasm of lung Social History (Updated 05/02/19 @ 10:45 by GAETANO VELAZQUEZ RN) Smoking and tobacco status: Current every day smoker Substance use type: does not use History of recent travel: No Physical Exam Physical Exam Appearance: Well-appearing, No pain distress and Well-nourished Ill-appearing: None Pain Distress: None Eyes: KURT, EOMI and Conjunctiva clear ENT: Ears normal, Nose normal and Oropharynx normal Neck: Supple Respiratory: Airway patent, Breath sounds clear, Breath sounds equal and Respirations nonlabored Cardiovascular: RRR, Pulses normal, No rub and No murmur GI/: Soft, Nontender, No masses, Bowel sounds normal and No Organomegaly Musculoskeletal: Normal strength, ROM intact, No edema and No calf tenderness Skin: Warm, Dry and Normal color Neurological: Sensation intact, Motor intact, Reflexes intact, Cranial nerves intact, Alert and Oriented Psychiatric: Affect appropriate and Mood appropriate Interpretation Radiology Interpretation Radiology Interpretation By: Radiologist Radiology Results: No acute changes Exam Interpreted: CT Scan Xray Comments: c spine Physician Notification Case Discussed Physician Notified: pmd Time of Notification: 13:20 (admitt observation) Critical Care Note Critical Care Note Total Time (mins): 0 Course Course Hematology/Chemistry: 05/02/19 11:05 05/02/19 11:05 Orders, Labs, Meds: Lab Review 05/02/19 05/02/19 05/02/19 11:00 11:05 11:05 WBC 7.33 RBC 4.83 Hgb 16.1 Hct 46.5 MCV 96.3 H MCH 33.3 H MCHC 34.6 RDW Coeff of Emil 12.5 Plt Count 221 Immature Gran % (Auto) 0.3 Neut % (Auto) 50.3 Lymph % (Auto) 41.3 [place] % (Auto) 6.3 Eos % (Auto) 1.4 Baso % (Auto) 0.4 Immature Gran # (Auto) 0.0 Neut # (Auto) 3.7 Lymph # (Auto) 3.0 [place] # (Auto) 0.5 Eos # (Auto) 0.1 Baso # (Auto) 0.0 D-Dimer (Manual) Puncture Site R rad O2 Saturation 97.0 ABG pH 7.416 ABG pCO2 34.8 L ABG pO2 87.0 ABG HCO3 22.4 ABG Total CO2 23 ABG Base Excess -2 Srini Test + FiO2 % 21.0 Sodium 139.7 Potassium 4.04 Chloride 106.9 Carbon Dioxide 27.6 Anion Gap 9.24 BUN 13.3 Creatinine 0.95 Estimated GFR (MDRD) 82.00 BUN/Creatinine Ratio 14.00 Glucose 104.7 Calcium 9.02 Total Bilirubin 0.45 AST 24.0 ALT 21.4 Alkaline Phosphatase 92.7 Total Creatine Kinase 41.2 L Troponin I < 0.012 Total Protein 7.49 Albumin 4.38 Globulin 3.11 Albumin/Globulin Ratio 1.40 05/02/19 11:05 WBC RBC Hgb Hct MCV MCH MCHC RDW Coeff of Emil Plt Count Immature Gran % (Auto) Neut % (Auto) Lymph % (Auto) [place] % (Auto) Eos % (Auto) Baso % (Auto) Immature Gran # (Auto) Neut # (Auto) Lymph # (Auto) [place] # (Auto) Eos # (Auto) Baso # (Auto) D-Dimer (Manual) 292.09 Puncture Site O2 Saturation ABG pH ABG pCO2 ABG pO2 ABG HCO3 ABG Total CO2 ABG Base Excess Srini Test FiO2 % Sodium Potassium Chloride Carbon Dioxide Anion Gap BUN Creatinine Estimated GFR (MDRD) BUN/Creatinine Ratio Glucose Calcium Total Bilirubin AST ALT Alkaline Phosphatase Total Creatine Kinase Troponin I Total Protein Albumin Globulin Albumin/Globulin Ratio Orders Category Date Time Status ABG DRAW REQUEST Stat CARDIO 05/02/19 10:54 Completed EKG-(ED ONLY) Stat CARDIO 05/02/19 10:53 Completed ABG Stat LAB 05/02/19 11:00 Completed CBC W/ AUTO DIFF Stat LAB 05/02/19 11:05 Completed COMPREHENSIVE METABOLIC PANEL Stat LAB 05/02/19 11:05 Completed CREATINE KINASE Stat LAB 05/02/19 11:05 Completed D-DIMER Stat LAB 05/02/19 11:05 Completed TROPONIN I Stat LAB 05/02/19 11:05 Completed CHEST, 1V AP ONLY Stat RADS 05/02/19 10:[address] CERVICAL SPINE W/O CONTRAST Stat RADS 05/02/19 11:58 Completed Vital Signs: Temp Pulse Resp BP Pulse Ox 05/02/19 10:33 98.3 F 81 16 142/90 H 98 Discharge Plan Discharge Patient Disposition: PLACED OBSERVATION Discharge Problem: Chest pain Qualifiers: Chest pain type: unspecified Qualified Code(s): R07.9 - Chest pain, unspecified Arm pain Qualifiers: Laterality: left Qualified Code(s): M79.602 - Pain in left arm ED Provider: SOLA KESSLER Condition: Stable
--- NOTE | 2019-05-02 14:37 | US ---
ULTRASOUND UPPER EXTREMITY VENOUS DOPPLER EXAM HISTORY: Extremity pain. FINDDINGS: Left upper extremity venous Doppler exam. Real time james-scale, Doppler spectral analysi s and color-flow Doppler imaging performed. The veins targeted for evaluation include the jugular, s ubclavian, axillary, brachial, cephalic, basilic, radial and ulnar. The evaluated veins demonstrat ed normal spontaneous flow and compression without evidence of thrombosis. IMPRESSION: No venous thrombosis identified within the areas evaluated.
--- NOTE | 2019-05-02 15:49 | CT ---
EXAM: CT angiogram, left upper extremity HISTORY: Pain left arm COMPARISON: None TECHNIQUE: CT angiogram, left upper extremity performed with intravenous contrast. Coronal and sagi ttal reformatted images obtained. 3-D reformatted images created. FINDINGS: Granulomatous calcification. Mild linear atelectasis and/or scarring. Colonic diverticul a noted. Aortic arch patent. Left subclavian artery patent. Left axillary artery patent. Left brachial feliciano ry patent. Proximal portions of the left radial and ulnar arteries are patent with nonopacification beginning in the of these arteries beginning in the proximal forearm, likely due to contrast timing. The arterial system more distal to this cannot be evaluated IMPRESSION: Patent left upper extremity arterial system to the level of the proximal left radial and ulnar arteries. Nonopacification beginning in the proximal forearm, likely due to contrast timing. The arterial system more distal to this cannot be evaluated
[2019-05-02 16:24] VITALS: BMI 26.4
[2019-05-02] MEDS: SODIUM CHLORIDE 1,000 ML IV SCH (16:36)
[2019-05-02] MEDS ORDERED: TYLENOL PO STA (16:55)
[2019-05-02] MEDS ORDERED: TYLENOL ONE (17:02)
[2019-05-02] MEDS ORDERED: QUETIAPINE 200 MG PO SCH (21:00)
[2019-05-02] MEDS ORDERED: TRAZODONE 100 MG PO SCH (21:00)
[2019-05-02] MEDS ORDERED: ULTRAM PO PRN (21:07)
[2019-05-02] MEDS ORDERED: ULTRAM PO STA (21:07)
[2019-05-03] MEDS: SODIUM CHLORIDE 1,000 ML IV SCH (05:14)
[2019-05-03] MEDS ORDERED: ARIPIPRAZOLE 10 MG PO SCH (09:00)
[2019-05-03 13:47] VITALS: BP 114/68; TEMP 98
[2019-05-03] MEDS ORDERED: TRAZODONE 100 MG PO SCH (21:00)
--- NOTE | 2019-05-05 11:18 | ECHO2D ---
Date of Exam: 05/03/19 Ordering Physician: DR. YOHANA CHEN Room #: 119 Reason for Echo: SOB, CHEST PAIN, ARM PAIN M-Mode Normal Adult Results LV Dimensions Normal Adult Results AoV Opening excursions >1.6 >1.6 LVEDD-base- 3.5-5.8 5.4 Ao root dimensions 2.0-3.7 3.8 LVESD-base- 3.1-4.6 L. Atrium dimensions 1.9-3.8 3.6 Post. Wall thickness 0.8-1.1 1.1 IV septum (thickness) 0.7-1.2 1.2 Post. Wall excursion 0.72-1.3 NORMAL Septal motion NORMAL Systolic motion R. Ventricular cavity 1.5-2.0 NORMAL LVEF 60% 64% Paradoxical septal wall motion NORMAL 2-D : 2-D M Mode Echocardiogram was performed using apical four chamber and left parasternal long and short axis views. Mitral, tricuspid and aortic valves appear to be normal. Contractility of the left ventricle seems to be normal, so is the cavity size. Left atrial cavity size and aortic root appear to be normal. There is no pericardial effusion. There is no thrombus noted in the left ventricle or left atrial cavity. No mitral valve prolapse noted. SUBCOSTAL APPROACH M-MODE: MV: NORMAL AV: NORMAL TV: NORMAL PV: CHAMBER SIZE: NORMAL WALL MOTION: NORMAL PERICARDIUM: NORMAL INTERPRETATION: 1. DIFFICULT STUDY BECAUSE OF SEVERE COPD--SUBCOSTAL APPROACH USED 2. LEFT VENTRICULAR HYPERTROPHY 3. NORMAL LEFT VENTRICULAR CONTRACTILITY 4. NORMAL VALVES MTDD
--- NOTE | 2019-05-08 13:31 | DS ---
DATE OF SERVICE: 05/03/19 SUBJECTIVE: The patient was admitted yesterday at the recommendation of the ER physician. He was concerned that there might be some cardiac problems. This patient however complaining mainly of pain on the left side of the neck to the shoulder down to the fingers. The pain had been there for about a week. He denied any injuries or exertion. The patient did not have any chest pain on presentation on the day of admission. His chest pain also was not accompanied by nausea, anorexia or diaphoresis. The patient according to his had lost about 50 pounds in the last year however I had not seen him for about 11 to 12 months. He had been to other providers but not me. I still do not know why he lost and I had asked him if he has any idea why he lost 50 pounds and he doesn't including his . This patient on followup probably will need colonoscopy as well endoscopy. What is done during this admission consistent of CTA left upper extremity negative except could not visualize the distal vessels done 05/02/19, Doppler studies of the left upper extremities are negative for thrombosis. CT scan of the cervical spine showed mild degenerative disease. Chest x-ray single view showed no acute cardiopulmonary processes. All of these were done 05/02/19. The patient had a CAT scan of the abdomen and pelvis 12/14/18 ordered at the emergency room by Dr. Cohen. Interpreted as no acute abdominal findings. No hydronephrosis or bowel obstructive or intraabdominal inflammation. Colonic diverticulosis multiple operative and incidental findings as detailed. Again he had another CT of the abdomen and pelvis 07/12/[address] Conrad interpretation no ureteral obstruction, no bowel obstruction, diverticular disease of the sigmoid without inflammation, previous appendectomy. CT head 05/11/18 because of dizziness showed no evidence of acute intracranial processes. The patient is positive for bilateral Adson hyperabduction maneuver more on the left side. During the course of the examination with Adson's maneuver the patient did complain of exacerbated pain in the left fingers, forearm. The patient with the hand stretched out has a good radial pulse with a good volume. He also has a good volume of he pedal pulses but anterior posterior tibials. Again his told me that he lost 50 pounds and could not describe to any obvious reasons at this time. I do think that this patient needs further investigation. He sees the psychiatrist at [facility] about every [address] scan of the cervical spine was interpreted as mild degenerative changes of the cervical spine. NECK: No masses and no bruit. CHEST: Symmetrical and equal with good expansion LUNGS: Clear to auscultation in both sides HEART: Audible and regular with good tones and no murmurs ABDOMEN: Flat, soft with no remarkable tenderness. No guarding. Bowel sounds are active. LOWER EXTREMITIES: Anterior and posterior tibial pulses are present. No tenderness in the calf muscles. UPPER EXTREMITIES: Radial pulses are of good volume left and right. Positive for absent hyperabduction maneuver left more than right and left is symptomatic. ASSESSMENT: 1. Thoracic outlet syndrome, bilateral left more than right 2. Neuropathy maybe secondary to #1 3. Neuropathy possible cervical disc disease with nerve compromise 4. Bipolar disorder versus schizophrenia 5. Prostatic carcinoma 6. Dyslipidemia 7. History of degenerative urinary surgery probably prostatic after that surgery the patient had problems urinating so a bladder stimulator is in place 8. History of hernia repair 9. History of ear, nose and throat surgery 10.Chronic tobacco use and abuse, persistent. Father had lung carcinoma and mother had heart disease PLAN: 1. The patient is to resume all previous medications 2. He will be scheduled for stress test as an outpatient as advised by Dr. Singh. I did talk to him with regards to the echocardiogram and the possibility of discharging him from the cardiac stand point and he did tell me that yes and schedule a stress test as an outpatient. 3. This should probably undergo endoscopy and colonoscopy because of the weight loss. There seems to be no obvious reason for any problems in the lungs based upon the chest x-ray and previous CAT scan of the abdomen and pelvis. 4. Home medications: Olanzapine 5mg daily, Seroquel 200mg at bedtime , Trazodone 100mg at bedtime, Abilify 10mg daily 5. He will be referred to a neurologist. He had the referral but he had cancelled that referral to the neurologist in [place]. I told him that if he would have an exacerbation of his pain in the left upper extremity that he should present himself to the emergency room with a neurologist in that hospital. [facility] as well as [facility]. The patient as well as the does acknowledge that. 6. He was advised to stop smoking. 7. I told him to continue to lose a few pounds more although the mentioned that he lost 50 pounds. 8. His MCV and MCH is elevated although he denies any use of alcohol now. His cardiac markers were negative. There were a series of three cardiac markers since emergency room PROGNOSIS: Guarded. MTDD
--- NOTE | 2019-05-09 10:56 | CONS ---
DATE OF CONSULTATION: 05/03/19 REASON FOR CONSULTATION: Chest pain, mainly left arm pain and tingling. Practically no chest pain at the present time. HISTORY OF PRESENT ILLNESS: 53-year-old white male was hospitalized through the Emergency Room on 05/02/19 with neck pain and left arm pain with tingling and numbness of the fingers of nearly 6 to 7 days duration. The patient's tingling and numbness of the left upper extremity is steady. He has history of thoracic outlet syndrome. Chest pain is in the upper part of the chest, left pectoris muscle, more so with movement of the left upper extremity. The patient denies any exertional chest discomfort. No shortness of breath, no sweating with it. No history of past medical problems. The patient had an echo and stress echo done nearly a year and one-half ago that was reported as normal. REVIEW OF SYSTEMS: CONSTITUTIONAL: No night sweats. No fatigue, malaise, lethargy. No fever or chills. HEENT: Eyes: No visual changes. No eye pain. No eye discharge. ENT: No sinus drainage. No epistaxis. No sinus pain. No sore throat. No odynophagia. No ear pain. No congestion. RESPIRATORY: No cough, no congestion. No hemoptysis. No shortness of breath. CARDIOVASCULAR: No angina symptoms. No CHF symptoms. Left upper chest pain and neck pain on the left side. No palpitations. No orthopnea. GASTROINTESTINAL: No abdominal pain. No nausea or vomiting. No diarrhea or constipation. No hematemesis. No hematochezia. GENITOURINARY: No urgency. No frequency. No dysuria. No hematuria. No obstructive symptoms. No discharge. No pain. No significant abnormal bleeding. MUSCULOSKELETAL: No musculoskeletal pain. No joint swelling. NEUROLOGICAL: Left arm tingling and numbness with fingers involved, continuous for the past 7 days. No headache. No neck pain. No syncope. No seizures. No dizziness. PSYCHIATRIC: Mildly depressed. Not anxious. No suicidal thoughts. No homicidal thoughts. SKIN: No rash. No lesions. No wounds. ENDOCRINE: No unexplained weight loss. No weight gain. HEMATOLOGIC/LYMPHATIC: No anemia. No purpura. No petechiae. No prolonged or excessive bleeding. No palpable lymph nodes. MEDICATIONS: Aripiprazole 10 mg p.o. daily Zyprexa 5 mg p.o. daily Seroquel 200 mg at bedtime Trazodone 100 mg at bedtime ALLERGIES: NKDA. PAST MEDICAL HISTORY: History of dyslipidemia Depression SOCIAL/PERSONAL/FAMILY HISTORY: The patient is , living with the . He smokes more than one pack per day. No alcohol abuse, no drug abuse. Able to do all activity of daily living. He is disabled from his depression for the past many years. He is followed by [facility]. The patient admitted that he hasn't been seeing his primary care, Dr. Aguilar for more than one year. The patient is noncompliant of diet, activity, medications. He is practically noncompliant of aspects of medical care. PHYSICAL EXAMINATION: GENERAL: The patient is oriented to time, place and person. VITAL SIGNS: Temperature 97.9, pulse 58, respiratory rate 18, blood pressure 90/50, pulse ox 95%. HEENT: Head normocephalic, atraumatic. Eyes: Extraocular muscles are intact. Pupils are equal, round and reactive to light and accommodation. Ears: No lesions. Nose appeared normal. Throat: No exudate or erythema. NECK: Supple. No JVD, no carotid bruit. No lymphadenopathy or thyromegaly. LUNGS: Decreased breath sounds. Increased AP diameter of the chest. Clear to auscultation. Percussion note normal. Chest symmetrical. HEART: S1, S2 distant. No S3. No murmurs. No cyanosis or clubbing. No ascites. Pulses: Dorsalis pedis and posterior tibial pulses +1 bilaterally. ABDOMEN: No ascites. Soft. Nontender. Bowel sounds active. No CVA tenderness. No mass felt. EXTREMITIES: No pedal edema. Full range of motion of all extremities, equal. NEUROLOGIC: No focal deficit. Cranial nerves II through XII are grossly intact. No headache, no double vision or headache. SKIN: Not dry. Intact. Turgor - normal. LYMPHATIC: No palpable lymph nodes/no lymphedema. MUSCULOSKELETAL: Normal joints with no swelling. Muscle tone is normal. EKG sinus rhythm, left axis. No acute changes times two. Hemoglobin 14.6, hematocrit 42, WBC 7,400, normal differential. Creatinine 0.9, BUN 14, potassium 4.2. GFR 81 cc/min. Telemetry sinus rhythm. No ST-T wave change. Cardiac markers negative. ASSESSMENT: 1. CHEST PAIN SEEMS TO BE TOTALLY ATYPICAL MORE LIKE CERVICAL RADICULOPATHY OR COULD BE FROM THORACIC OUTLET SYNDROME. 2. SMOKER. 3. LIPID PROFILE UNKNOWN. 4. CHRONIC LUNG DISEASE. PLAN/RECOMMENDATIONS: The patient's echo was done which showed normal LV contractility, normal valves. Cardiac markers negative. Telemetry sinus rhythm. No ST wave change. The patient's chest pain seems to be noncardiac. Will recommend stress echo. Later on I had discussion with the attending as he called me and said that according to him, the patient's symptoms and complaints are noncardiac, thoracic outlet syndrome and would like him to be sent home. Agree with him that the patient's symptoms are totally unrelated to any cardiac origin. The patient is up and about, stable enough to be discharged. The patient will have stress echo done as an outpatient the next couple of days. I also let the nursing staff know later on if the patient's chest pain reoccurs with shortness of breath or sweating to go to the nearest emergency room. Thanks for the referral. CLEMENT
--- NOTE | 2019-05-09 10:58 | CONS ---
CODING FOR BILLING 05/03/19 CONSULTATION DONE - THIS IS THE FIRST TIME THIS PATIENT WAS SEEN SO NEW PATIENT/CONSULT. DEVIND
== END 2019-05-03 14:29 | disposition home or self-care (01) ==
LOC: MEDSURG B 10:31 → ED 10:31 → MEDSURG B 16:03
PROVIDERS: ADMIT General Practice; ATTEND General Practice
DX: R07.9 Chest pain, unspecified; M79.602 Pain in left arm